=== PATIENT | female | born 1945 | race Caucasian/White ===

== ENCOUNTER 2017-12-23 09:55 | Outpatient (CLI) | payer MEDICARE, OTHER | END 2017-12-23 09:56 | disposition home or self-care (01) | LOC: BICMAMMO 09:55 | PROVIDERS: ATTEND Internal Medicine Rheumatology | DX: M81.0 Age-related osteoporosis without current pathological fracture (principal) | CPT/HCPCS: 77080 ==

== ENCOUNTER 2018-04-30 12:32 | Outpatient (CLI) | payer MEDICARE, OTHER ==
--- NOTE | 2018-04-30 14:53 | RAD ---
CHEST TWO VIEWS: HISTORY: Dyspnea. COMPARISON: None. FINDINGS: The cardiac silhouette is unremarkable. The pulmonary vasculature is within normal limits. The medi astinum is midline with aortic calcification. The pulmonary volumes are somewhat decreased. There i s widespread and diffuse linear interstitial prominence, most pronounced at the periphery. Subtle we dge-shaped interstitial opacities at the periphery of each upper lobe, at the level of the respective mid scapular bodies, has the appearance of fibrotic scarring. No evidence of pneumothorax or pleura l fluid. Calcification of the aorta. Mild physiologic wedging of several lower thoracic vertebral bodies on t he lateral view. IMPRESSION: 1. Interstitial fibrotic changes of the parenchyma, symmetric and diffuse. 2. Atherosclerosis. POS: [facility]
== END 2018-04-30 12:33 | disposition home or self-care (01) ==
LOC: RAD 12:32
PROVIDERS: ATTEND Internal Medicine Pulmonary Disease
DX: R06.00 Dyspnea, unspecified (principal); I70.90 Unspecified atherosclerosis
CPT/HCPCS: 71046

== ENCOUNTER 2018-05-07 12:54 | Outpatient (CLI) | payer MEDICARE, OTHER ==
--- NOTE | 2018-05-07 13:50 | CT ---
HIGH RESOLUTION CHEST CT: HISTORY: COPD. Interstitial lung disease. COMPARISON: None. TECHNIQUE: A high-resolution CT is performed in the supine and prone projections. FINDINGS: Visualized mediastinum is unremarkable. Calcifications of the mitral annulus. Upper solid organs ar e grossly unremarkable. There does appear to be hepatosplenomegaly. There is extensive septal thickening. No evidence of bronchiectasis. Patchy ground-glass opacities. Emphysematous changes of the lung apices are noted. Possible minimal honeycombing in both lower lo bes and left upper lobe. IMPRESSION: Interstitial changes as described above. Patchy areas of honeycombing in the lower lobes and left up per lobe. POS: [facility]
== END 2018-05-07 12:55 | disposition home or self-care (01) ==
LOC: CT 12:54
PROVIDERS: ATTEND Internal Medicine
DX: J44.9 Chronic obstructive pulmonary disease, unspecified (principal); J84.9 Interstitial pulmonary disease, unspecified; J98.4 Other disorders of lung
CPT/HCPCS: 71250; 94060; 94727; 94729

== ENCOUNTER 2018-09-24 09:53 | Outpatient (CLI) | payer MEDICARE, OTHER ==
--- NOTE | 2018-09-24 10:36 | ULT ---
RENAL SONOGRAM: HISTORY: Urinary tract infection. FINDINGS: The right kidney is 11.1 cm and the left kidney 11.9 cm. Right renal pelvis slightly prominent witho ut dilatation of the calyces. Urinary bladder is unremarkable. IMPRESSION: No significant abnormalities are demonstrated. POS: [facility]
== END 2018-09-24 09:54 | disposition home or self-care (01) ==
LOC: BICULT 09:53
PROVIDERS: ATTEND Urology
DX: N39.0 Urinary tract infection, site not specified (principal)
CPT/HCPCS: 76770

== ENCOUNTER 2018-10-09 13:45 | Observation (INO) | payer MEDICARE, OTHER ==
[~2018-10-09 13:45] MED LIST: ISOVUE-370 76%-LOCM 1 ML ONE
--- NOTE | 2018-10-09 14:37 | RAD ---
PORTABLE AP CHEST: Date: 10/09/18 HISTORY: Dyspnea. COMPARISON: 05/10/18. FINDINGS: Cardiac silhouette is magnified by projection. There is linear scarring again present within the lung s bilaterally, greater in the upper lung zones. No area of consolidation or pleural fluid is seen. Va scular calcification is seen in thoracic aorta. There is osteopenia. IMPRESSION: Chronic lung changes without evidence of an acute cardiopulmonary process. POS: [facility]
[2018-10-09 14:58] LABS: #Eosinphils 0.1 thou/uL (0.0-0.7); #Lymphocytes 1.5 thou/uL (1.20-3.40); #Monocytes 0.6 thou/uL (0.11-0.59); #Neutrophils 4.2 thou/uL (1.40-6.50); %Basophils 0.6 % (0.0-1.0); %Eosinophils 2.2 % (0.0-10.0); %Lymphocytes 23.2 % (21.0-51.0); %Monocytes 9.2 % (0.0-10.0); %Neutrophils 64.7 % (42.0-75.0); Mean Corpuscular HGB CONC 31.5 g/dL (32.0-36.0); Mean Corpuscular Hemoglobin 26.5 pg (27.0-31.0); Mean Corpuscular Volume 84.3 fL (78.0-98.0); Mean Platelet Volume 8.9 fL (7.4-10.4); Platelet Count 144 thou/uL (130-400); RBC Distribution Width 16.9 % (11.5-14.5); Red Blood Cell (RBC) Count 4.52 mill/uL (4.20-5.40); White Blood Cell (WBC) Count 6.4 thou/uL (4.8-10.8)
[2018-10-09 15:21] LABS: ALT (SGPT) 10 U/L (8-55); AST (SGOT) 22 U/L (5-34); Albumin 3.9 g/dL (3.4-4.8); Alkaline Phosphatase 100 U/L (40-150); Anion Gap 14 mmol/L (10-20); BUN (Urea Nitrogen) 12 mg/dL (9.8-20.1); Bilirubin, Total 0.4 mg/dL (0.2-1.2); CK (CPK) 49 U/L (29-168); Calc. Creatinine Clearance 0 mL/min (70-130); Calcium 9.3 mg/dL (7.8-10.44); Carbon Dioxide 23 mmol/L (23-31); Chloride 106 mmol/L (98-107); Estimated GFR-MDRD 71; Globulin 3.8 g/dL (2.4-3.5); Glucose 87 mg/dL (83-110); Lipase 17 U/L (8-78); Potassium 3.5 mmol/L (3.5-5.1); Protein, Total 7.7 g/dL (6.0-8.3); Sodium 139 mmol/L (136-145)
[2018-10-09 15:44] LABS: CKMB 1.5 ng/mL (0-6.6)
--- NOTE | 2018-10-09 17:10 | HP ---
PRIMARY CARE PHYSICIAN: Roosevelt Warren MD PRIMARY REPERTOIRE MANAGER: Christiano Stearns MD REASON FOR ADMISSION: Chest pain and elevated troponin. HISTORY OF PRESENT ILLNESS: A 73-year-old female, who has underlying history of diastolic heart failure, diabetes, hypertension, gastroesophageal reflux disease, COPD, and chronic respiratory failure, on home oxygen therapy, who presented to emergency room with complaint of chest tightness. The patient reports that this morning she was not feeling good when she woke up. She did not take her regular morning atenolol. Subsequently, she started feeling racing of her heart and she was experiencing chest tightness, which was radiating to left upper extremity and back. She denies any associated nausea, vomiting, diaphoresis, dizziness, or syncope. She was feeling shortness of breath, which is chronic for her, but little bit worse when she had that episode. The patient called paramedics and paramedics gave her aspirin and nitroglycerin. After that, the pain subsided and never returned. She was slightly tachycardic when she arrived to emergency room. The patient reports that lately she was feeling upset in her stomach. She was having intermittent loose bowel movement. Her grandson was also experiencing viral gastroenteritis. The patient by herself did not have any melena or hematochezia. She denies any fever or chills. She denies any nausea or vomiting. When paramedics took her at that time, she was tachycardic, but she was hemodynamically stable. Her EKG was not showing any new ischemic changes. The patient reports that, in August, the patient was evaluated by Dr. Stearns and she had echocardiography done as well as stress test was done in his office. The patient has underlying claustrophobia and she requires lorazepam with any kind of imaging . This patient is originally from [place], [place], where she had complete workup done, and recently after her , moved to [facility] with her daughter. REVIEW OF SYSTEMS: CONSTITUTIONAL: Negative for weight loss or gain, ability to conduct usual activities. SKIN: Negative for rash, itching. EYES: Negative for double vision, pain. ENT/MOUTH: Negative for nose bleeding, neck stiffness, pain, tenderness. CARDIOVASCULAR: Negative for palpitations, dyspnea on exertion, orthopnea. RESPIRATORY: Negative for shortness of breath, wheezing, cough, hemoptysis, fever or night sweats. GASTROINTESTINAL: Negative for poor appetite, abdominal pain, heartburn, nausea, vomiting, constipation, or diarrhea. GENITOURINARY: Negative for urgency, frequency, dysuria, nocturia. MUSCULOSKELETAL: Negative for pain, swelling. NEUROLOGIC/PSYCHIATRIC: Negative for anxiety, depression. ALLERGY/IMMUNOLOGIC: Negative for skin rash, bleeding tendency. Please see my HPI for pertinent positive and negative. All other review of systems reviewed and negative except as mentioned in the HPI. PAST MEDICAL HISTORY: Atrial fibrillation; osteoporosis; peripheral neuropathy; COPD; chronic respiratory failure, on home oxygen; diabetes type 2; hypertension; dyslipidemia; congestive heart failure. PAST PSYCHIATRIC HISTORY: Anxiety and depression. PAST SURGICAL HISTORY: Cataract surgery, bladder cancer surgery, cardiac catheterization, appendicectomy, cholecystectomy, and tubal ligation. SOCIAL HISTORY: The patient has history of smoking. She quit smoking 30 years ago. She denies any alcohol or other illicit drug abuse. She is and living with her daughter. FAMILY HISTORY: No strong family history of premature coronary artery disease, stroke, or cancer. ALLERGIES: NO KNOWN DRUG ALLERGIES. CURRENT HOME MEDICATIONS: 1. Atenolol 25 mg twice daily. 2. Lipitor 10 mg p.o. daily. 3. Celecoxib 200 mg twice daily. 4. Librax 5/2.5 twice daily. 5. Lasix 20 mg daily. 6. Gabapentin 600 mg twice daily. 7. Glimepiride 2 mg daily. 8. Losartan 25 mg p.o. daily. 9. Omeprazole 20 mg p.o. daily. 10. Oxybutynin 5 mg p.o. daily. 11. Zoloft 100 mg p.o. daily. 12. Boniva inhalation daily. EMERGENCY ROOM COURSE: The patient is given aspirin and nitroglycerin. PHYSICAL EXAMINATION: VITAL SIGNS: Currently, blood pressure 134/72, pulse , respiratory rate 20, temperature 98.6, saturation 95% on 2 L oxygen, and weight 97 kg. GENERAL: The patient is currently alert, awake, and in no obvious acute distress. HEENT: Head; normocephalic and atraumatic. Eyes; pupils round and reactive to light. Extraocular muscle intact. ENT; oropharynx within normal limits. Moist mucous membrane. No oral lesion. No pharyngeal erythema. No exudate. NECK: Supple. No JVD. No thyromegaly. No carotid bruit. No jugular venous distention. LUNGS: Clear to auscultation without any rhonchi or rales. CARDIAC: S1, S2, regular, tachycardia. No murmur. No gallop. No rub. ABDOMEN: Soft and benign. EXTREMITIES: No edema. No calf tenderness. NEUROLOGIC: Nonfocal examination. SIGNIFICANT LABORATORY DATA: CBC; WBC 6.4, hemoglobin 12.0, and platelet 144. BMP; sodium 139, potassium 3.5, chloride 106, carbon dioxide 23, BUN 12, creatinine 0.79, glucose 87, and calcium 9.3. LFT; AST 22, ALT 10, alkaline phosphatase 100, albumin 3.9, and lipase 17. CK 49, CK-MB 1.5, and troponin 0.079. BNP 146.4. EKG showing sinus tachycardia. ASSESSMENT AND PLAN: 1. Chest pain. Description is atypical. Troponin is slightly elevated. The patient does not have any ST elevation at this point. Suspecting related with tachycardic episode. We will check D-dimer to rule out any thromboembolic disorder. If D-dimer is abnormal, then we will consider doing CT angiography. Meanwhile, we will continue with the aspirin 325 mg p.o. daily and nitroglycerin patch q.8 hourly. Cardiology will be consulted. Echocardiography and stress test were done at Cardiology office. We will obtain records from them. We will check lipid profile for risk stratification. Further decision will defer to Cardiology. 2. Elevated troponin. Rule out acute coronary syndrome. We will do serial cardiac enzyme x3 as mentioned in problem #1. 3. Elevated BNP. The patient has history of congestive heart failure, suspecting diastolic heart failure. We will obtain echocardiography report from Cardiology office. 4. COPD with chronic respiratory failure, on home oxygen therapy. We will continue DuoNeb therapy q.6 hourly p.r.n. 5. Paroxysmal atrial fibrillation. We will continue atenolol 25 mg twice daily. 6. Dyslipidemia. Check lipid profile tomorrow and continue Lipitor 10 mg p.o. daily. 7. Peripheral neuropathy. Continue gabapentin 600 mg twice daily. 8. Diabetes, type 2. Continue diabetic diet and insulin as per sliding scale protocol. We will continue glimepiride 2 mg daily. 9. Hypertension. We will continue losartan 25 mg p.o. daily. 10. Gastroesophageal reflux disease. We will continue Protonix 40 mg p.o. daily. 11. Urge incontinence. Continue oxybutynin 5 mg p.o. daily. 12. Anxiety and depression. Continue Zoloft 100 mg p.o. daily. 13. Deep venous thrombosis prophylaxis, Lovenox 40 mg subcu daily. 14. Gastrointestinal prophylaxis, Protonix 40 mg p.o. daily. CODE STATUS: The patient is full code. The patient's daughter is surrogate decision maker. DISPOSITION PLAN: Based on clinical course and Cardiology recommendation. Plan of care discussed with the patient and family member at bedside in the emergency room in detail. Job ID: [id number]
[2018-10-09] MEDS ORDERED: Calcium Carbonate 500 MG ChewTAB PO PRN (18:11)
[2018-10-09] MEDS ORDERED: Zolpidem Tartrate 5 MG TAB PO PRN (18:11)
[2018-10-09] MEDS ORDERED: Senokot S 8.6-50 MG TAB PO PRN (18:11)
[2018-10-09] MEDS ORDERED: Artificial Tears 18 DROP/0.9 ML EA EYE PRN (18:11)
[2018-10-09] MEDS ORDERED: Nitroglycerin 0.4 MG TAB (25 Tab Bottle) PO PRN (18:11)
[2018-10-09] MEDS ORDERED: Ondansetron ODT 4 MG TAB PO PRN (18:11)
[2018-10-09] MEDS ORDERED: Loperamide HCl 2 MG CAP PO PRN (18:11)
[2018-10-09] MEDS ORDERED: Dextrose 50% Abboject 50 ML SYRINGE SLOW IVP PRN (18:11)
[2018-10-09] MEDS ORDERED: HumaLOG 300 UNITS/3 ML VIAL SC PRN ×2 (18:11)
[2018-10-09] MEDS ORDERED: Bisacodyl 10 MG SUPP PR PRN (18:11)
[2018-10-09] MEDS ORDERED: Sodium Chloride 0.65% Nasal 44 ML BOT EA NARE PRN (18:11)
[2018-10-09] MEDS ORDERED: Bisacodyl 5 MG TAB PO PRN (18:11)
[2018-10-09] MEDS ORDERED: hydrALAZINE 20 MG/ML VIAL SLOW IVP PRN (18:11)
[2018-10-09] MEDS ORDERED: HYDROcodone/Acetaminophen 5/325 mg Tablet PO PRN (18:11)
[2018-10-09] MEDS ORDERED: Dextrose 5% in Water 1,000 ML IV PRN (18:11)
[2018-10-09] MEDS ORDERED: Cepastat Lozenges 1 LOZ PO PRN (18:11)
[2018-10-09] MEDS ORDERED: Nitroglycerin 0.4 MG TAB (25 Tab Bottle) SL PRN (18:11)
[2018-10-09] MEDS ORDERED: Ondansetron PF 4 MG/2 ML Vial IVP PRN (18:11)
[2018-10-09] MEDS ORDERED: Eucerin (Mineral Oil/Petrolatum,White) 30 gm Jar TOP PRN (18:11)
[2018-10-09] MEDS ORDERED: Loratadine 10 MG TAB PO PRN (18:11)
[2018-10-09] MEDS ORDERED: Diabetic Tussin 200 MG/10 ML UDCUP PO PRN (18:11)
[2018-10-09 18:16] VITALS: BMI 33.2
[2018-10-09 19:01] LABS: Troponin I 0.085 ng/mL (< 0.028)
[2018-10-09] MEDS ORDERED: Aspirin 325 MG TAB PO SCH (19:15)
[2018-10-09] MEDS ORDERED: chlordiazePOXIDE/Clidinium Bromide Capsule PO SCH (19:15)
[2018-10-09] MEDS: Atenolol 25 MG TAB PO SCH (19:40)
[2018-10-09] MEDS ORDERED: Sodium Chloride 0.9% 1,000 ML IV SCH (20:00)
[2018-10-09] MEDS ORDERED: Diazepam 5 MG TAB PO SCH (20:00)
[2018-10-09] MEDS ORDERED: Nitroglycerin 2% Ointment 1 INCH/1 GM Packet TOP SCH (20:00)
[2018-10-09] MEDS: Gabapentin 300 MG CAP PO SCH (20:20)
[2018-10-09] MEDS: Acetaminophen 325 MG TAB PO PRN (20:32)
[2018-10-09] MEDS ORDERED: Atorvastatin Calcium 10 MG TAB PO SCH (21:00)
[2018-10-09 21:47] LABS: Troponin I 0.085 ng/mL (< 0.028)
--- NOTE | 2018-10-09 21:49 | CT ---
CT PULMONARY ANGIOGRAM WITH IV CONTRAST AND 3D POSTPROCESSIN10/09/18 HISTORY: Shortness of breath. FINDINGS: There is good contrast opacification of the pulmonary artery vasculature without filling defects to s uggest pulmonary embolism. Esophagus is well opacified without aneurysm or dissection. Vascular calci fications are present. No pleural or pericardial effusions are seen. There are chronic changes in the lung reddy which were also seen on the chest CT of 05/07/18. Degenerative changes are present in the spine and upper abdominal tomograms demonstrate splenomegaly (16 cm). IMPRESSION: No CT evidence of pulmonary embolism. POS: [facility]
[2018-10-10] MEDS: Acetaminophen 325 MG TAB PO PRN ×2 (04:55→13:26)
[2018-10-10] MEDS: Nitroglycerin 2% Ointment 1 INCH/1 GM Packet TOP SCH ×2 (04:58→14:40)
[2018-10-10 05:54] LABS: Cardiac Risk 3.4 (Less than 4.5)
[2018-10-10] MEDS ORDERED: Glimepiride 2 MG TAB PO SCH (08:00)
[2018-10-10] MEDS: Gabapentin 300 MG CAP PO SCH (08:23)
[2018-10-10] MEDS: Atenolol 25 MG TAB PO SCH (08:23)
[2018-10-10] MEDS ORDERED: Aspirin 325 mg Enteric Coated Tablet PO SCH (09:00)
[2018-10-10] MEDS ORDERED: Enoxaparin Sodium 40 MG/0.4 ML SYRINGE SC SCH (09:00)
[2018-10-10] MEDS ORDERED: Furosemide 20 MG TAB PO SCH (09:00)
[2018-10-10] MEDS ORDERED: Oxybutynin 5 MG TAB PO SCH (09:00)
[2018-10-10] MEDS: Losartan 25 MG TAB PO SCH ×2 (12:00→12:29)
[2018-10-10] MEDS: chlordiazePOXIDE/Clidinium Bromide Capsule PO SCH ×2 (12:29)
--- NOTE | 2018-10-10 13:08 | PDOC.PN ---
- Subjective Encounter Start Date: 10/10/18 Encounter Start Time: 07:30 -: old records requested/rev Patient seen and examined. No new complaints. No overnight events - Objective Resuscitation Status - Order Detail: 10/09/18 16:13 Resuscitation Status Routine Resuscitation Status: FULL: Full Resuscitation MAR Reviewed: Yes Vital Signs & Weight: Vital Signs (12 hours) Temp Pulse Resp BP BP Pulse Ox 10/10/18 08:23 82 105/56 L 10/10/18 08:00 98.5 F 79 18 105/56 L 92 L 10/10/18 03:20 97.8 F 78 17 120/58 L 98 Weight Weight 215 lb 11.2 oz I&O: 10/09/18 10/10/18 10/11/18 06:59 06:59 06:59 Intake Total 986 Output Total 500 Balance 486 Result Diagrams: 10/09/18 14:47 10/09/18 14:47 Additional Labs: Accuchecks 10/10/18 10/10/18 10/09/18 10:55 06:09 20:46 POC Glucose 88 88 129 H EKG Reviewed by me: Yes Phys Exam - Physical Examination Constitutional: NAD HEENT: PERRLA, moist MMs, sclera anicteric Neck: no JVD, supple Respiratory: no wheezing, no rales, no rhonchi Cardiovascular: RRR, no significant murmur, no rub Gastrointestinal: soft, non-tender, no distention, positive bowel sounds Musculoskeletal: no edema, pulses present Neurological: non-focal, normal sensation, moves all 4 limbs Lymphatic: no nodes Psychiatric: normal affect, A&O x 3 Skin: no rash, normal turgor Dx/Plan (1) Chest pain Code(s): R07.9 - CHEST PAIN, UNSPECIFIED Status: Acute (2) Elevated troponin Code(s): R74.8 - ABNORMAL LEVELS OF OTHER SERUM ENZYMES Status: Acute (3) Anxiety and depression Code(s): F41.9 - ANXIETY DISORDER, UNSPECIFIED; F32.9 - MAJOR DEPRESSIVE DISORDER, SINGLE EPISODE, UNSPECIFIED Status: Chronic (4) COPD (chronic obstructive pulmonary disease) Status: Chronic (5) Chronic respiratory failure with hypoxia, on home O2 therapy Code(s): J96.11 - CHRONIC RESPIRATORY FAILURE WITH HYPOXIA; Z99.81 - DEPENDENCE ON SUPPLEMENTAL OXYGEN Status: Chronic (6) Diabetes type 2, controlled Code(s): E11.9 - TYPE 2 DIABETES MELLITUS WITHOUT COMPLICATIONS Status: Chronic (7) Dyslipidemia Code(s): E78.5 - HYPERLIPIDEMIA, UNSPECIFIED Status: Chronic (8) GERD (gastroesophageal reflux disease) Code(s): K21.9 - GASTRO-ESOPHAGEAL REFLUX DISEASE WITHOUT ESOPHAGITIS Status: Chronic (9) Hypertension Code(s): I10 - ESSENTIAL (PRIMARY) HYPERTENSION Status: Chronic (10) Obesity (BMI 30.0-34.9) Code(s): E66.9 - OBESITY, UNSPECIFIED Status: Chronic (11) Osteoporosis Code(s): M81.0 - AGE-RELATED OSTEOPOROSIS W/O CURRENT PATHOLOGICAL FRACTURE Status: Chronic - Plan cont current plan of care * medication reviewed as below * symptomatic treatment * further decision as per cardiology * will consider discharge later. Review of Systems - Review of Systems ENT: negative: Ear Pain, Ear Discharge, Nose Pain, Nose Discharge, Nose Congestion, Mouth Pain, Mouth Swelling, Throat Pain, Throat Swelling, Other Respiratory: negative: Cough, Dry, Shortness of Breath, Hemoptysis, SOB with Excertion, Pleuritic Pain, Sputum, Wheezing Cardiovascular: negative: chest pain, palpitations, orthopnea, paroxysmal nocturnal dyspnea, edema, light headedness, other Gastrointestinal: negative: Nausea, Vomiting, Abdominal Pain, Diarrhea, Constipation, Melena, Hematochezia, Other Genitourinary: negative: Dysuria, Frequency, Incontinence, Hematuria, Retention , Other Musculoskeletal: negative: Neck Pain, Shoulder Pain, Arm Pain, Back Pain, Hand Pain, Leg Pain, Foot Pain, Other - Medications/Allergies Allergies/Adverse Reactions: Allergies Allergy/AdvReac Type Severity Reaction Status Date / Time codeine Allergy "heart Verified 10/09/18 19:44 beat out of my body" Medications: Current Medications Acetaminophen (Tylenol) 650 mg PO Q4H PRN PRN Reason: Headache/Fever/Mild Pain (1-3) Last Admin: 10/10/18 04:55 Dose: 650 mg Hydrocodone Bitart/Acetaminophen ([place] 5/325) 1 tab PO Q4H PRN PRN Reason: Moderate Pain (4-6) Albuterol/Ipratropium (Duoneb) 3 ml NEB Q6H PRN PRN Reason: SOB &/or Wheezing Artificial Tears (Tears Naturale) 2 drop EA EYE PRN PRN PRN Reason: Dry Eyes Aspirin (Ecotrin) 325 mg PO DAILY [facility] Last Admin: 10/10/18 08:23 Dose: 325 mg Atenolol (Tenormin) 25 mg PO Q12HR [facility] Last Admin: 10/10/18 08:23 Dose: 25 mg Atorvastatin Calcium (Lipitor) 10 mg PO HS [facility] Last Admin: 10/09/18 20:20 Dose: 10 mg Bisacodyl (Dulcolax) [address] DAILYPRN PRN PRN Reason: Constipation Bisacodyl (Dulcolax) 10 mg PO DAILYPRN PRN PRN Reason: Constipation Calcium Carbonate (Tums) 1,000 mg PO Q4H PRN PRN Reason: Heartburn or Indigestion Chlordiazepoxide/Clidinium (Librax) 1 cap PO ACHS [facility] Last Admin: 10/10/18 12:29 Dose: 1 cap Dextrose/Water (Dextrose 50%) 25 gm SLOW IVP PRN PRN PRN Reason: Hypoglycemia Enoxaparin Sodium (Lovenox) 40 mg SC 0900 [facility] Last Admin: 10/10/18 08:24 Dose: 40 mg Furosemide (Lasix) 20 mg PO DAILY [facility] Last Admin: 10/10/18 08:23 Dose: 20 mg Gabapentin (Neurontin) 600 mg PO BID [facility] Last Admin: 10/10/18 08:23 Dose: 600 mg Glimepiride (Amaryl) 2 mg PO QAM-WM [facility] Last Admin: 10/10/18 08:23 Dose: 2 mg Glucagon (Glucagon) 1 mg IM PRN PRN PRN Reason: Hypoglycemia Guaifenesin (Robitussin Sf) 200 mg PO Q4H PRN PRN Reason: Cough Hydralazine HCl (Apresoline) 10 mg SLOW IVP Q4H PRN PRN Reason: SBP > 180 and HR < 70 Dextrose/Water (D5w) 1,000 mls @ 0 mls/hr IV .Q0M PRN PRN Reason: Hypoglycemia Insulin Human Lispro (Humalog) 0 units SC .MODERATE SLIDING SC PRN PRN Reason: Moderate Correctional Scale Insulin Human Lispro (Humalog) 0 units SC .BEDTIME SLIDING SC PRN PRN Reason: Bedtime Correctional Scale Loperamide HCl (Imodium) 2 mg PO PRN PRN PRN Reason: Diarrhea/Loose Stools Loratadine (Claritin) 10 mg PO DAILYPRN PRN PRN Reason: Sinus Symptoms Losartan Potassium (Cozaar) 25 mg PO DAILY [facility] Last Admin: 10/10/18 12:29 Dose: 25 mg Mineral Oil/White Petrolatum (Eucerin Cream) 0 gm TOP BIDPRN PRN PRN Reason: Dry Skin Nitroglycerin (Nitrostat) 0.4 mg SL Q5MIN PRN PRN Reason: Chest Pain Nitroglycerin (Nitro-Bid 2% Ointment) 0.5 inch TOP Q8HR [facility] Last Admin: 10/10/18 04:58 Dose: 0.5 inch Ondansetron HCl (Zofran Odt) 4 mg PO Q6H PRN PRN Reason: Nausea/Vomiting Ondansetron HCl (Zofran) 4 mg IVP Q6H PRN PRN Reason: Nausea/Vomiting Oxybutynin Chloride (Ditropan) 5 mg PO DAILY [facility] Last Admin: 10/10/18 08:23 Dose: 5 mg Pantoprazole Sodium (Protonix) 40 mg PO DAILY [facility] Last Admin: 10/10/18 08:23 Dose: 40 mg Senna/Docusate Sodium (Senokot S) 2 tab PO BID PRN PRN Reason: Constipation Sertraline HCl (Zoloft) 100 mg PO DAILY [facility] Last Admin: 10/10/18 08:23 Dose: 100 mg Sodium Chloride ([place] Nasal [place] 0.65%) 0 ml EA NARE QIDPRN PRN PRN Reason: Nasal Congestion Throat Lozenges (Cepastat Lozenges) 1 sofy PO Q2H PRN PRN Reason: Sore Throat Zolpidem Tartrate (Ambien) 5 mg PO HSPRN PRN PRN Reason: Insomnia
[2018-10-10 13:27] VITALS: BP 137/63; TEMP 97.8
--- NOTE | 2018-10-10 13:47 | CON ---
DATE OF CONSULTATION: PRIMARY CARE DOCTOR: Dr. Roosevelt Warren. PRIMARY HYDROELECTRIC MECHANIC: Dr. Stearns. REASON FOR CARDIOLOGY CONSULTATION: Chest pain. HISTORY OF PRESENT ILLNESS: Ms. Romero is a 73-year-old female with significant history of idiopathic pulmonary fibrosis, which was managed by Dr. Rivero, bladder cancer, diabetes type 2, hypertension, and left CEA in 1999. About two weeks, she had abdominal pain and diarrhea x2. Yesterday, when she woke up, she noticed that she has a pain to the right, next to the left mediastinal border, just one spot, the discomfort elevated with palpitation and with movement. Due to these symptoms, the patient decided to present to the emergency department for further evaluation and treatment. During the episode, she did not have any shortness of breath, dizziness, lightheadedness or any numbness to the left upper arm or to the neck or any other cardiac complaints. She underwent stress test in April 2018 with no ischemia and EF of 65%. Also, the patient had echocardiogram done in August 2017 with EF of 55% to 60%, grade 1 diastolic dysfunction, mild tricuspid regurgitation, mild mitral valvular regurgitation, sclerotic aortic valve with reducing excursion and mild aortic valve stenosis. The patient never had a cardiac catheterization before and she had right endarterectomy in 1999 and she had a carotid Doppler study in February 2018 that shows less than 50% stenosis of the right and left carotid arteries, mild atherosclerotic plaque on right and left common carotid arteries. PAST MEDICAL HISTORY: 1. Hypertension. 2. Diabetes, type 2. 3. Bladder cancer. 4. Arthritis. 5. GERD. 6. Short-term memory loss. PAST SURGICAL HISTORY: 1. Appendectomy. 2. Left CEA in 1999. 3. Bilateral cataract surgery. 4. Cholecystectomy. 5. Bladder surgery in 2017. FAMILY HISTORY: The patient's father has a history of diabetes. The patient's mother due to the complication of CVA and mitral valve myocardial infarction at the age of 74. The patient had two brothers, whom due to cancer and cirrhosis. The patient's sister alive and well. SOCIAL HISTORY: The patient is a . She lives near her daughters. She has short-term memory loss since she has a sepsis due to the bladder cancer and its complication. The patient is an ex-smoker, quit 30 years ago. She denies EtOH or illicit drug abuse. She drinks 2 cups of coffee a day. ALLERGIES: SHE IS ALLERGIC TO CODEINE. HOME MEDICATIONS: 1. Zoloft 100 mg once a day. 2. Oxybutynin 5 mg once a day. 3. Omeprazole 20 mg once a day. 4. Losartan 25 mg once a day. 5. Glimepiride 2 mg once a day. 6. Gabapentin 600 mg twice a day. 7. Librax 1 capsule twice a day. 8. Celebrex 200 mg twice a day. 9. Atorvastatin 10 mg once a day. 10. Atenolol 25 mg twice a day. 11. Boniva 150 mg once a day. 12. Lasix 20 mg once a day. REVIEW OF SYSTEMS: Twelve-point review of systems unless otherwise mentioned in the HPI. The patient uses a walker. She has upper and bottom dentures. PHYSICAL EXAMINATION: VITAL SIGNS: Blood pressure 105/56, temperature 98.5, pulse 79, sinus rhythm, respiratory rate 18, O2 saturation 92% on room air. GENERAL: The patient is alert and oriented x4, in no acute distress. HEENT: Head is normocephalic, atraumatic. Eyes; extraocular muscle movements are intact. She uses glasses. ENT and mouth; oral and nasal mucosa moist without lesion. NECK: Supple. Normal range of motion. They have a bruit to the right carotid. Again, the patient's carotid Doppler in August 2017 showed less than 50% stenosis. LUNGS: Clear to auscultate bilaterally. No rales, rhonchi, or wheezing noted. CARDIOVASCULAR: Regular rate and rhythm. Normal S1, S2. There are no S3, S4. No significant murmur, heaves, or thrill noted. 2+ pulses in the bilateral upper lower extremity. No edema. ABDOMEN: Soft, nontender. No masses palpated. Bowel sounds are present. SKIN: Warm and dry. No lesion, rash, or ischemia noted. MUSCULOSKELETAL: The patient able to move all extremities. She uses a walker. She denies claudication. PSYCHIATRIC: The patient's mood is appropriate. NEUROLOGIC: The patient is alert and oriented x4, nonfocal. LABORATORY DATA: WBC 6.4, hemoglobin 12.0, hematocrit 38.1, platelet 144. D-dimer 1.25. Sodium 139, potassium 3.5, BUN 12, creatinine 0.79. AST 22, ALT 10, CK-MB 1.5, troponin 0.079, 0.085, 0.085. BNP is 146.4. Total cholesterol 159, triglycerides 124, HDL 47, LDL 87. The patient's chest x-ray shows chronic lung changes without evidence of acute cardiopulmonary process and the patient has a CT scan of the chest due to the elevated D-dimer, which showed no CT evidence of pulmonary embolism. The 12-lead EKG at the emergency department shows sinus tach with heart rate [address]-segment change or T-wave inversion. ASSESSMENT AND PLAN: 1. Chest pain. The patient is complaining of the pain with palpitation to the side with movement. The etiology is possible secondary to muscle aching. The patient's EKG did not show any ST-segment change or T-wave inversion. The patient's cardiac enzyme is negative. The patient's vital signs are stable at this moment. The patient's stress test in April 2018 shows normal, no ischemia, and the patient's echocardiogram in February 2018 shows within normal range. We would like to continue to monitor the patient's symptoms and the patient can follow up with Dr. Stearns within two weeks as outpatient. 2. Hypertension. The patient's blood pressure is stable at this moment. 3. Hyperlipidemia. The patient is on Lipitor 10 mg once a day. 4. Diabetes, type 2. She is on a.c. and h.s. blood glucose check with sliding scale insulin. 5. Idiopathic pulmonary fibrosis, which is managed by Dr. Rivero. She uses home O2 during the night and as needed during the daytime. At this moment, the patient is stable. Thank you very much for allowing the Cardiology Service to participate in the care of this patient. The patient's condition is stable and the patient's chest pain is typical and possible from musculoskeletal etiology. The patient is stable to discharge and follow up with Dr. Stearns within two weeks. Job ID: [id number]
--- NOTE | 2018-10-10 14:00 | DIS ---
DATE OF ADMISSION: 10/09/2018 DATE OF DISCHARGE: 10/10/2018 PRIMARY CARE PHYSICIAN: Dr. Roosevelt Warren. DISCHARGE DISPOSITION: Home. PRIMARY DISCHARGE DIAGNOSES: Chest pain, ruled out acute coronary syndrome, elevated troponin due to demand ischemia. SECONDARY DISCHARGE DIAGNOSES: Obesity with BMI 32, osteoporosis, hypertension, gastroesophageal reflux disease, dyslipidemia, diabetes type 2, chronic obstructive pulmonary disease, chronic respiratory failure with hypoxia, on home oxygen therapy, anxiety and depression, chronic diastolic heart failure. PRIMARY PROCEDURE/OPERATION: None. RADIOLOGICAL INVESTIGATION: Chest x-ray showed chronic changes. CT angiography negative for PE. SIGNIFICANT LABORATORY DATA: WBC 6.4, hemoglobin 12.0, and platelets 144. D-dimer . Sodium 139, creatinine 0.79. Electrolytes normal. LFT normal. BNP 146. Troponin 0.079, 0.085. LDL 87. Lipase normal. DISCHARGE MEDICATIONS: The patient will continue all her previous medications; 1. Tenormin 25 mg p.o. b.i.d. 2. Lipitor 10 mg daily. 3. Celebrex 200 mg p.o. b.i.d. p.r.n. 4. Librax one capsule b.i.d. 5. Lasix 20 mg daily. 6. Gabapentin 600 mg p.o. b.i.d. 7. Amaryl 2 mg p.o. daily. 8. Boniva 150 mg p.o. as directed. 9. Losartan 25 mg p.o. daily. 10. Omeprazole 20 mg p.o. daily. 11. Oxybutynin 5 mg p.o. daily. 12. Zoloft 100 mg p.o. daily. CONTRAINDICATION: None. CODE STATUS: Full code. INPATIENT HOSPITAL INSURANCE REPRESENTATIVE: Dr. Bañuelos. TEST RESULTS PENDING ON DISCHARGE: None. ALLERGIES: CODEINE. DISCHARGE PLAN: Posthospital, the patient will follow up with Dr. Stearns and primary care physician. HOSPITAL COURSE: A 73-year-old female, who was not feeling good when she woke up yesterday and subsequently, she was having a fast heart rate, and she was experiencing chest tightness with mild shortness of breath. She was evaluated in the emergency room. She was found with elevated troponin, which was indeterminate range. Rest of blood test was normal. The patient also had an electrocardiogram, which was unchanged from previous. This patient was observed overnight in the hospital. We did a D-dimer, it was slightly elevated and that is why we did CT angiography, which was negative for PE. The patient already had recently echocardiography and stress test done in cardiology office, and as per patient, report was normal. We did not pursue any more testing during this admission. We consulted Cardiology. The patient is seen and examined at bedside today. Currently, the patient is asymptomatic. The patient expressed her wish to go home. She will continue all her previous medications. The patient is seen and examined at bedside today. Please see my progress note from today for further detail. Job ID: [id number]
--- NOTE | 2018-10-12 09:58 | CON ---
DATE OF CONSULTATION: ADDENDUM: PRIMARY CARE PHYSICIAN: Roosevelt Warren MD Please refer to the notes already dictated by nurse practitioner. HISTORY OF PRESENT ILLNESS: Ms. Romero is a very pleasant 73-year-old female with a history of pulmonary fibrosis, who lives alone. She has been having some diarrhea for the last couple weeks. She thought she had Salmonella, but this is not that of a true diagnosis that she is aware of. There has been no diagnosis, but this is just for her what she did think she had. She has had some chest strain in the past, which she says this has been so similar to what pain she has now. This has been an ongoing process. She did recently have a stress test in the office, which was unremarkable. She became frightened at home, for which she developed some right-sided chest discomfort and 911 was called. She was evaluated and they have advised to go to the hospital and since being here, she has had no further chest discomfort. Her EKG does not show any acute changes to indicate ischemia. She did have some short runs of SVT. With supraventricular tachycardia, she did have some nonspecific ST-segment changes due to very short runs and they resolved, but she does not have chest pain associated with them, but does feel the palpitations. Her stress test was in April of 2018. She had no evidence of ischemia on a PET perfusion study with ejection fraction of 65%. Her cardiac enzymes are indeterminate, but this may be due to demand ischemia, all associated with the supraventricular tachycardia or pulmonary fibrosis with some probably hypoxemia. Her troponin was 0.079, increased up to 0.089 and has remained stable. She has had no other complaints. She has been walking. She does use home O2, but here she has been doing relatively well even though she is on room air. PAST MEDICAL HISTORY: Please refer the notes dictated by the nurse practitioner. SOCIAL HISTORY: Please refer the notes dictated by the nurse practitioner. FAMILY HISTORY: Please refer the notes dictated by the nurse practitioner. REVIEW OF SYSTEMS: Please refer the notes dictated by the nurse practitioner. MEDICATIONS: Please refer the notes dictated by the nurse practitioner. PHYSICAL EXAMINATION: GENERAL: Reveals an elderly female, who is very pleasant, well-developed. VITAL SIGNS: Blood pressure 137/63, heart rate is 80 and regular, and respiratory rate 16. She is afebrile. O2 saturation is 92%. HEENT: Shows head to be normocephalic and atraumatic. NECK: She does have a very soft left carotid bruit, which may be some radiation from the aortic area. CHEST: Her chest actually has a bilateral fine dry rales compatible with her pulmonary fibrosis. CARDIOVASCULAR: Revealed a regular rate and rhythm. She does have a systolic murmur over the aortic area, which is compatible with a history of some aortic stenosis in the past. Otherwise, there are no heaves or thrills noted. ABDOMEN: Shows obesity. Positive bowel sounds are present. No organomegaly or masses are noted. Femoral pulses are present. I did not palpate pedal pulses. She has no lower extremity edema. NEUROLOGIC: She appears to be fully intact. LABORATORY DATA: Other than the slightly abnormal cardiac enzymes, it is relatively unremarkable. Hemoglobin was 12.0, WBC of 6.4 with a blood sugar of 87 and potassium of 3.5. IMPRESSION AND PLAN: 1. Elderly female with chest pain, which is somewhat atypical, most likely musculoskeletal. Please note, this was reproducible by palpation of the chest. Also, she does have a history of pulmonary fibrosis, which may be causing some increasing shortness of breath and chest discomfort. I do not believe that this is any significant underlying coronary artery disease or indication that she has had a myocardial infarction at this time. She has been stable and from my perspective, could be discharged home, who can be followed up as an outpatient. 2. Pulmonary fibrosis. She is followed by the merchandise for resale purchasing agent and we will continue to follow up with them. 3. History of diabetes. This appears to be under good control at this time. 4. History of venous insufficiency. This also appears to be relatively stable. She will need to follow up in the office. Otherwise, from a cardiac standpoint, she is stable overall and is ready for discharge today. Please note, she does have diastolic dysfunction, but this has remained stable. I did review her medications and would agree with the present medications. Job ID: [id number]
== END 2018-10-10 16:15 | disposition home or self-care (01) ==
LOC: ERS 13:45 → 2SW 15:45
PROVIDERS: ADMIT Internal Medicine; ATTEND Internal Medicine
DX: R07.89 Other chest pain (principal); I24.8 Other forms of acute ischemic heart disease; R74.8 Abnormal levels of other serum enzymes; M81.0 Age-related osteoporosis without current pathological fracture; K21.9 Gastro-esophageal reflux disease without esophagitis; E78.5 Hyperlipidemia, unspecified; J44.9 Chronic obstructive pulmonary disease, unspecified; F41.9 Anxiety disorder, unspecified; F32.9 Major depressive disorder, single episode, unspecified; I11.0 Hypertensive heart disease with heart failure; I50.32 Chronic diastolic (congestive) heart failure; J96.11 Chronic respiratory failure with hypoxia; E11.42 Type 2 diabetes mellitus with diabetic polyneuropathy; I48.0 Paroxysmal atrial fibrillation; M19.90 Unspecified osteoarthritis, unspecified site; J84.112 Idiopathic pulmonary fibrosis; E66.9 Obesity, unspecified; Z68.32 Body mass index [BMI] 32.0-32.9, adult; Z87.891 Personal history of nicotine dependence; Z79.83 Long term (current) use of bisphosphonates; Z79.84 Long term (current) use of oral hypoglycemic drugs; Z79.899 Other long term (current) drug therapy; Z88.5 Allergy status to narcotic agent; Z99.81 Dependence on supplemental oxygen
CPT/HCPCS: 71045; 71275; 80053; 80061; 82550; 82553; 82962 ×2; 83690; 83880; 84484 ×2; 85025; 85379; 93005; 94760; 96360; 96361; 96372; 99285; G0378 ×2; 36415; 36416; J1650; Q9966

== ENCOUNTER 2018-11-17 09:21 | Emergency (ER) | payer MEDICARE, OTHER ==
[2018-11-17 10:14] LABS: #Eosinphils 0.3 thou/uL (0.0-0.7); #Lymphocytes 1.4 thou/uL (1.20-3.40); #Monocytes 0.7 thou/uL (0.11-0.59); #Neutrophils 5.3 thou/uL (1.40-6.50); %Basophils 0.2 % (0.0-1.0); %Eosinophils 4.2 % (0.0-10.0); %Lymphocytes 18.4 % (21.0-51.0); %Monocytes 8.9 % (0.0-10.0); %Neutrophils 68.3 % (42.0-75.0); Hemoglobin 12.5 g/dL (12.0-16.0); Mean Corpuscular HGB CONC 30.9 g/dL (32.0-36.0); Mean Corpuscular Hemoglobin 26.1 pg (27.0-31.0); Mean Corpuscular Volume 84.4 fL (78.0-98.0); Mean Platelet Volume 9.8 fL (7.4-10.4); Platelet Count 164 thou/uL (130-400); RBC Distribution Width 16.4 % (11.5-14.5); Red Blood Cell (RBC) Count 4.77 mill/uL (4.20-5.40); White Blood Cell (WBC) Count 7.7 thou/uL (4.8-10.8)
[2018-11-17] MEDS ORDERED: Acetaminophen 325 MG TAB ONE (10:17)
[2018-11-17 10:32] LABS: ALT (SGPT) 12 U/L (8-55); AST (SGOT) 29 U/L (5-34); Albumin 3.9 g/dL (3.4-4.8); Alkaline Phosphatase 104 U/L (40-150); Anion Gap 13 mmol/L (10-20); BUN (Urea Nitrogen) 12 mg/dL (9.8-20.1); Bilirubin, Total 0.5 mg/dL (0.2-1.2); Calc. Creatinine Clearance 0 mL/min (70-130); Calcium 9.5 mg/dL (7.8-10.44); Carbon Dioxide 23 mmol/L (23-31); Chloride 106 mmol/L (98-107); Estimated GFR-MDRD 72; Globulin 4.1 g/dL (2.4-3.5); Glucose 95 mg/dL (83-110); Potassium 3.7 mmol/L (3.5-5.1); Sodium 138 mmol/L (136-145)
[2018-11-17 10:51] LABS: Bilirubin Negative (Negative); Blood, Urine Negative (Negative); Clarity CLOUDY (Clear); Glucose, Urine (Dipstick) Negative (Negative); Leukocyte Moderate (Negative); Nitrite Negative (Negative); Protein, Urine (Dipstick) Trace mg/dL (Neg-Trace); Specific Gravity, Urine 1.012 (1.002-1.036); Urobilinogen 0.2 mg/dL (0.2-1.0); pH, Urine 7.5 (5.0-9.0)
[2018-11-17 10:54] LABS: Bacteria/HPF 1+ HPF (None Seen); Pathc Cast-AUWi Flag 0.95 (0-2.49); RBC/HPF 0-3 HPF (0-3); Squamous Epithelial None Seen HPF (0-3)
[2018-11-17 10:56] LABS: Yeast-AUWi Flag 30.7 (0-25.0)
[2018-11-17 11:06] LABS: Hyaline Casts/LPF 0-3 HYALINE CAST LPF (0-3 Hyaline); Yeast-All Forms None Seen HPF (None Seen)
--- NOTE | 2018-11-17 11:46 | RAD ---
LUMBAR SPINE THREE VIEWS: History: Back pain. FINDINGS/IMPRESSION: No fracture, subluxation, or bony destruction is seen. Degenerative changes are present. Vascular lorna cifications are noted. POS: OFF
[2018-11-17] MEDS ORDERED: cefTRIAXone\\ROCEPHIN 2 GM VIAL ONE (12:06)
[2018-11-17] MEDS ORDERED: Morphine 2 MG/ML SYRINGE ONE (13:08)
== END 2018-11-17 13:27 | disposition home or self-care (01) ==
LOC: ERS 09:21
DX: N12 Tubulo-interstitial nephritis, not specified as acute or chronic (principal); I48.91 Unspecified atrial fibrillation; E11.40 Type 2 diabetes mellitus with diabetic neuropathy, unspecified; I11.0 Hypertensive heart disease with heart failure; I50.9 Heart failure, unspecified; F41.9 Anxiety disorder, unspecified; F32.9 Major depressive disorder, single episode, unspecified; Z79.899 Other long term (current) drug therapy
CPT/HCPCS: 36415; 51702; 72100; 80053; 81003; 81015; 85025; 87086; 96365; 96375; J0696; J2270

== ENCOUNTER 2018-11-27 07:37 | Observation (INO) | payer MEDICARE, OTHER ==
[2018-11-27 08:46] LABS: #Basophils 0.1 thou/uL (0.0-0.2); #Eosinphils 0.1 thou/uL (0.0-0.7); #Lymphocytes 1.1 thou/uL (1.20-3.40); #Monocytes 0.4 thou/uL (0.11-0.59); %Basophils 0.9 % (0.0-1.0); %Eosinophils 2.4 % (0.0-10.0); %Lymphocytes 18.9 % (21.0-51.0); %Neutrophils 70.8 % (42.0-75.0); Hemoglobin 11.8 g/dL (12.0-16.0); Mean Corpuscular HGB CONC 30.7 g/dL (32.0-36.0); Mean Corpuscular Hemoglobin 26.3 pg (27.0-31.0); Mean Corpuscular Volume 85.6 fL (78.0-98.0); Mean Platelet Volume 9.8 fL (7.4-10.4); Platelet Count 161 thou/uL (130-400); RBC Distribution Width 17.5 % (11.5-14.5); Red Blood Cell (RBC) Count 4.51 mill/uL (4.20-5.40); White Blood Cell (WBC) Count 5.7 thou/uL (4.8-10.8)
[2018-11-27 09:01] LABS: ALT (SGPT) 9 U/L (8-55); AST (SGOT) 26 U/L (5-34); Albumin 3.5 g/dL (3.4-4.8); Alkaline Phosphatase 105 U/L (40-150); Anion Gap 14 mmol/L (10-20); BUN (Urea Nitrogen) 12 mg/dL (9.8-20.1); Bilirubin, Total 0.4 mg/dL (0.2-1.2); Calc. Creatinine Clearance 0 mL/min (70-130); Calcium 8.8 mg/dL (7.8-10.44); Carbon Dioxide 23 mmol/L (23-31); Chloride 104 mmol/L (98-107); Estimated GFR-MDRD 73; Globulin 3.6 g/dL (2.4-3.5); Glucose 100 mg/dL (83-110); Lipase 17 U/L (8-78); Protein, Total 7.1 g/dL (6.0-8.3); Sodium 138 mmol/L (136-145)
--- NOTE | 2018-11-27 09:02 | CT ---
CT ABDOMEN AND PELVIS WITH CONTRAST: HISTORY: Diffuse abdominal pain. COMPARISON: None. FINDINGS: There appears to be some scarring and some old interstitial lung disease in the lung bases. No peric ardial effusion. Dense mitral annular calcifications and aortic valve calcifications. Prior cholecy stectomy. Due to patient rotation and habitus, the left lateral hemiabdomen and hemipelvis sidewalls not comple tely evaluated on this examination. There are dense calcifications of the aorta. No aneurysmal dila tation. Mild submucosal edema of the ascending colon and transverse colon. Debbi trunk and superior mesenteri c arteries are patent. No free intraperitoneal gas or fluid. Chronic-appearing wedge compression deformities at L1, T11, and T9. There is some high-grade narrowing of the ostia of the superior mesenteric artery due to calcific and soft plaque. No hydronephrosis. No abnormal renal enhancing mass. Mild submucosal edema of the descending colon. No retroperitoneal adenopathy. IMPRESSION: 1. Findings suggestive of colitis. This may be infectious or inflammatory. 2. 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 3. No free intraperitoneal gas or fluid. 4. Likely a component of lung disease in the lung disease in the lung bases. 5. Dense mitral annular and aortic valve calcifications. POS: [facility]
[2018-11-27] MEDS ORDERED: Ketorolac Tromethamine 30 MG/ML VIAL ONE (09:08)
[2018-11-27] MEDS ORDERED: Lorazepam 2 MG/ML VIAL ONE (09:08)
[2018-11-27 09:15] LABS: Bilirubin Small (Negative); Blood, Urine Negative (Negative); Clarity CLEAR (Clear); Glucose, Urine (Dipstick) Negative (Negative); Leukocyte Negative (Negative); Nitrite Negative (Negative); Protein, Urine (Dipstick) 30 mg/dL (Neg-Trace); Specific Gravity, Urine 1.043 (1.002-1.036); Urobilinogen 0.2 mg/dL (0.2-1.0)
[2018-11-27 09:15] LABS: Potassium 2.5 mmol/L (3.5-5.1)
[2018-11-27] MEDS ORDERED: Meropenem 2 GM, Admixture Fee 1 EACH in Sodium Chloride 0.9% 100 ML IVPB SCH (09:15)
[2018-11-27 09:17] LABS: Bacteria/HPF None Seen HPF (None Seen); Hyaline Casts/LPF 4-6 HYALINE CAST LPF (0-3 Hyaline); Pathc Cast-AUWi Flag 0.81 (0-2.49); Squamous Epithelial 0-3 HPF (0-3); WBC/HPF 0-3 HPF (0-3)
[2018-11-27 09:28] LABS: Renal Epithelial 0-3 HPF (0-3); Transitional Epithelial 0-3 HPF (0-3)
[2018-11-27] MEDS ORDERED: Potassium Chloride 20 MEQ TAB ONE (10:33)
[2018-11-27] MEDS ORDERED: Dextrose 50% Abboject 50 ML SYRINGE SLOW IVP PRN (11:59)
[2018-11-27] MEDS ORDERED: HumaLOG 300 UNITS/3 ML VIAL SC PRN (11:59)
[2018-11-27] MEDS ORDERED: Dextrose 5% in Water 1,000 ML IV PRN (11:59)
[2018-11-27 12:13] LABS: Lactic Acid 1.2 mmol/L (0.5-2.2)
[2018-11-27 12:28] LABS: Magnesium 1.8 mg/dL (1.6-2.6); Phosphorus 2.3 mg/dL (2.3-4.7)
[2018-11-27 12:32] VITALS: BMI 32.9
[2018-11-27] MEDS ORDERED: Prevnar 13-Val Conj/PF 0.5 ML SYRINGE IM ONE (12:45)
[2018-11-27] MEDS: metroNIDAZOLE 500 MG in Premix Bag 1 BAG IVPB SCH ×2 (13:06→20:01)
[2018-11-27] MEDS: Ciprofloxacin Lactate/D5W 200 MG in Premix Bag 1 BAG IVPB SCH (14:07)
[2018-11-27] MEDS: Potassium Chloride 20 MEQ TAB PO SCH (14:10)
--- NOTE | 2018-11-27 15:54 | CON ---
DATE OF CONSULTATION: 11/27/2018 REASON FOR CONSULTATION: Diarrhea and colitis. HISTORY OF PRESENT ILLNESS: Savita Romero is a 73-year-old woman admitted to the hospital earlier today with persistent diarrhea and abdominal pain and back pain. She actually recently met my GI colleague, Dr. Baldomero Aguilar earlier this week in clinic consultation. She has a history of atrial fibrillation, CHF, and diabetic neuropathy. She had bladder cancer surgery a couple of years ago. She has had recurrent urinary tract infections and has been off and on different antibiotics for the past several months. For about the past 2 months, the patient has had a new diarrhea. This is evidently watery and explosive and she has had several episodes of fecal incontinence. This has not been every day, but most days of the week. She says this has been especially bad over the past week, then yesterday her back pain started to escalate along with the diarrhea and this prompted her presentation. Notably, she has had stool studies about 3 weeks ago showing elevated fecal WBCs, but otherwise negative cultures, negative C. difficile. Dr. Aguilar has planned to perform diagnostic colonoscopy and this was scheduled for next week. The patient says she has had colonoscopies in the past, last one was about 5 years ago and the pediatric colonoscope was required for some reason. Today, she has actually not had any bowel movement and she ate a large breakfast and a large lunch. She was started on ciprofloxacin and Flagyl. A CT scan of the abdomen and pelvis demonstrated changes suggestive of mild submucosal edema and the ascending colon, transverse colon, and descending colon. Stool studies are pending. REVIEW OF SYSTEMS: Full review of systems including constitutional; head, eyes, ears, nose, throat; GI; ; cardiovascular; respiratory; musculoskeletal; and neurologic systems are negative except as noted in the HPI. PAST MEDICAL AND SURGICAL HISTORY: CHF, atrial fibrillation, diabetes with neuropathy, hypertension, hyperlipidemia, and bladder cancer, bladder surgery 2 years ago, osteoporosis, appendectomy, cholecystectomy, and depression/anxiety. SOCIAL HISTORY: No smoking, alcohol, or drug use. FAMILY HISTORY: Noncontributory. ALLERGIES: CODEINE. OUTPATIENT MEDICATIONS: 1. Atenolol. 2. Atorvastatin. 3. Gabapentin. 4. Glimepiride. 5. Omeprazole 20 mg daily. 6. Oxybutynin. 7. Leflunomide. 8. Librax twice daily. 9. Celebrex 200 mg twice daily. 10. Lisinopril. 11. Tramadol. 12. Ibandronate. PHYSICAL EXAMINATION: VITAL SIGNS: Temperature 97.7, pulse 76, blood pressure 146/72, and 95% oxygen saturation on 2 L nasal cannula. GENERAL: Elderly 73-year-old woman, obese, lying in bed comfortably, in no acute distress. SKIN: No jaundice. No rashes were palpable. HEENT: Eyes, no scleral icterus. Extraocular movements intact. ENT, mucous membranes moist. No oral lesions. LYMPH: No submandibular or supraclavicular lymphadenopathy. THYROID: Nontender to palpation. HEART: Regular rate and rhythm. LUNGS: Clear to auscultation bilaterally. ABDOMEN: Bowel sounds are present. The abdomen is soft. There is really no tenderness to palpation throughout the abdomen. No masses or organomegaly appreciated. No guarding or rebound tenderness. EXTREMITIES: No peripheral edema. VESSELS: Radial pulses 2+ bilaterally. NEUROLOGIC: Cranial nerves 2 through 12 intact bilaterally. No focal deficits. LABORATORY STUDIES: WBC 5.7, hemoglobin 11.8, platelets 161. Urinalysis negative. Sodium 138, potassium 2.5, BUN 12, creatinine 0.77. Lactic acid 1.2, total bilirubin 0.4, alkaline phosphatase 105, AST 26, ALT 9, albumin 3.5, and lipase 19. IMAGING STUDIES: CT of the abdomen and pelvis demonstrates prior changes in cholecystectomy. There is mild submucosal edema in the ascending colon, transverse colon, and descending colon. There was also high-grade narrowing at the ostia of the SMA, though adequate flow distally. ASSESSMENT AND PLAN: 1. Chronic diarrhea. 2. Abnormal CT scan suggestive of colitis involving the ascending colon, transverse colon, and descending colon. I would note this patient had recently negative stool studies just a few weeks ago, the stool WBCs were elevated. This is in the context of a lot of antibiotics recently, but note C. difficile was negative last month. Dr. Aguilar had planned for diagnostic colonoscopy for further evaluation and I agree with this plan. We will plan to go ahead and perform colonoscopy this admission. The patient ate a couple of large meals already today, so we will have her on clear liquid diet tomorrow. Plan for bowel preparation tomorrow evening and colonoscopy the following day. The patient is in agreement with this. In the meantime, the patient is on ciprofloxacin and Flagyl. Continue other supportive cares. Thank you for the consultation. Please call anytime with questions or concerns. Job ID: [id number]
[2018-11-27] MEDS: Acetaminophen 325 MG TAB PO PRN ×2 (16:47→23:33)
--- NOTE | 2018-11-27 17:27 | HP ---
CHIEF COMPLAINT: Diarrhea and nausea. HISTORY OF PRESENT ILLNESS: The patient is a 73-year-old female with past medical history of hypertension, pulmonary fibrosis, idiopathic. The patient is on chronic oxygen, diabetes, hypertension, diastolic heart failure, who presents to the hospital with complaints of diarrhea and nausea that has been going on and off for the past couple of months, however, it has worsened. The patient states that she was recently in the hospital about a month and a half ago when she had some chest pain and shortness of breath. At that time, she was evaluated by Cardiology. However, the patient states that she continues to have diarrhea after eating her meals. The patient states that she did follow up with GI as an outpatient and is supposed to get a colonoscopy in the next couple of weeks. However, the patient states that for the past week, she has not been able to eat much, gets very nauseated and has been having more diarrhea than usual. She denies any fevers or chills. She denies any abdominal pain with eating, just states that she feels nauseated. The patient also complains of lower back pain, which has been going on for the past few months and she does have a slip from her primary care doctor that she was supposed to get a lumbar sacral MRI as an outpatient, however that has not happened. The patient also states that she normally gets frequent urinary tract infections and has just recently completed a course of ciprofloxacin couple of days ago. She denies any burning, any dysuria, or any confusion that are associated with UTI. However, the patient does state that she has been having worsening lower back pain. PAST MEDICAL HISTORY: 1. She has a history of diabetes. 2. Hypertension. 3. Reflux. 4. Diastolic heart failure. 5. Idiopathic pulmonary fibrosis. She is on chronic oxygen. 6. Bladder cancer. REVIEW OF SYSTEMS: All negative except for the ones mentioned above in the HPI. PAST SURGICAL HISTORY: She has had a cataract surgery, bladder surgery due to bladder cancer. She has had appendectomy, cholecystectomy, and tubal ligation. SOCIAL HISTORY: She does have a history of smoking, however, quit 30 years ago. Denies any alcohol use or drug use. She lives with her family and she is a full code. FAMILY HISTORY: No history of any heart disease, strokes, or cancers. ALLERGIES: SHE IS ALLERGIC TO CODEINE. HOME MEDICATIONS: As the following, she takes; 1. Atenolol 25 mg b.i.d. 2. Lipitor 20 mg daily. 3. Librax 5/2.5 twice a day. 4. Lasix 20 mg daily. 5. Gabapentin 600 mg b.i.d. 6. Losartan 25 mg daily. 7. Omeprazole 20 mg daily. 8. Oxybutynin 5 mg daily. 9. Zoloft 100 mg daily. PHYSICAL EXAMINATION: VITAL SIGNS: As of the following; temperature of 98.8, pulse 78, blood pressure 140/60, and she is 100% on 2 to 3 L. GENERAL: She is awake, alert, and oriented x3. Does not appear in any distress. HEENT: Normocephalic, atraumatic. No lymphadenopathy noted. CARDIOVASCULAR: S1 and S2 present. No murmurs, rubs, or gallops. LUNGS: Clear to auscultation. No rhonchi or wheezes noted. ABDOMEN: Obese. Bowel sounds are present x2. She has pain on palpation upon epigastric area. NEUROVASCULAR: Neurovascular-monahan, no focal deficits noted. She does have some pain on palpation of her lower lumbar spine area and also some pain to her right paraspinal area. SKIN: She does have some cuts and some bruising, however, nothing significant. LABORATORY RESULTS: As of the following; WBCs of 5.7, hemoglobin of 11.8, hematocrit of 38.5, and platelets of 161. Chemistry; sodium of 138, potassium of 2.5, BUN of 12, and creatinine of 0.77. Her LFTs appeared to be normal. Lipase was 17. She did have a urine. Urine appeared to be very clear. There was no leukocyte esterase and there was no squamous epithelial cells. 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 She also had a lumbar x-ray, which is indicated. She has some degenerative changes. ASSESSMENT AND PLAN: The patient is a 73-year-old female, who presents to the hospital with diarrhea and nausea, which has been going on for the past couple of months, however, it has worsened over the past few weeks. 1. Diarrhea secondary to possible infectious versus vascular versus inflammatory. The patient's CAT scan does show that she has significant colitis. She has been on multiple bouts of antibiotics. I will check a Clostridium difficile on this lady. Also, we will check fecal leukocytes. Also, we will check a TSH to rule out any thyroid disease. We will also consult GI since she was supposed to get a colonoscopy as an outpatient, however, has not scheduled that yet and her symptoms are worsening. I will prophylactically for now, start her on some Cipro and Flagyl. Also, check a lactic acid at the possibility that given her stenosis in the SMA could possibly be contributing to her colitis. However, she has no abdominal pain. 2. Hypokalemia. We will replace her potassium. Also, we will check a magnesium and a phosphorus on this lady. 3. History of hypertension. We will continue her home medications. 4. History of pulmonary fibrosis, currently under control and we will continue her home oxygen. 5. Diabetes. We will check Accu-Cheks a.c. and at bedtime. For now, I will hold her oral medications and I will put her on sliding-scale insulin. 6. Deep venous thrombosis prophylaxis. We will put the patient on Lovenox. I will also continue to have this patient on pain medication. I feel that she is not optimized on any pain medications. Also, if the patient is unable to lie flat, the family did request me to get an MRI while she was in-house. However, I did explain to the patient and the patient's family that until she is able to lie flat, the MRI would not be obtainable. The patient and family agreed and agreed on better controlling her pain before an MRI is pursued. Job ID: [id number]
[2018-11-27] MEDS: Fentanyl 100 MCG/2 ML VIAL SLOW IVP PRN ×2 (18:24→21:05)
[2018-11-27] MEDS: Gabapentin 300 MG CAP PO SCH (20:01)
[2018-11-27] MEDS: Atenolol 25 MG TAB PO SCH (20:02)
[2018-11-27] MEDS: Famotidine/PF 20 mg/2ml Vial SLOW IVP SCH (20:03)
[2018-11-27] MEDS: traMADol HCl 50 MG TAB PO PRN (23:31)
[2018-11-28] MEDS: Fentanyl 100 MCG/2 ML VIAL SLOW IVP PRN ×3 (00:36→17:32)
[2018-11-28] MEDS: Ciprofloxacin Lactate/D5W 200 MG in Premix Bag 1 BAG IVPB SCH ×2 (00:54→13:07)
[2018-11-28] MEDS: traMADol HCl 50 MG TAB PO PRN ×2 (03:25→08:01)
[2018-11-28] MEDS: Acetaminophen 325 MG TAB PO PRN ×2 (03:26→18:56)
[2018-11-28] MEDS: metroNIDAZOLE 500 MG in Premix Bag 1 BAG IVPB SCH ×3 (03:29→19:41)
[2018-11-28 07:17] LABS: #Eosinphils 0.3 thou/uL (0.0-0.7); #Lymphocytes 1.2 thou/uL (1.20-3.40); #Monocytes 0.4 thou/uL (0.11-0.59); #Neutrophils 2.5 thou/uL (1.40-6.50); %Basophils 0.7 % (0.0-1.0); %Lymphocytes 27.1 % (21.0-51.0); %Monocytes 9.2 % (0.0-10.0); %Neutrophils 57.1 % (42.0-75.0); Hemoglobin 11.3 g/dL (12.0-16.0); Mean Corpuscular HGB CONC 30.7 g/dL (32.0-36.0); Mean Corpuscular Hemoglobin 26.7 pg (27.0-31.0); Mean Corpuscular Volume 86.8 fL (78.0-98.0); Mean Platelet Volume 9.8 fL (7.4-10.4); Platelet Count 130 thou/uL (130-400); RBC Distribution Width 17.6 % (11.5-14.5); Red Blood Cell (RBC) Count 4.22 mill/uL (4.20-5.40); White Blood Cell (WBC) Count 4.3 thou/uL (4.8-10.8)
[2018-11-28 07:31] LABS: Anion Gap 8 mmol/L (10-20); BUN (Urea Nitrogen) 11 mg/dL (9.8-20.1); Calc. Creatinine Clearance 98 mL/min (70-130); Calcium 8.6 mg/dL (7.8-10.44); Carbon Dioxide 30 mmol/L (23-31); Chloride 107 mmol/L (98-107); Estimated GFR-MDRD 72; Glucose 117 mg/dL (83-110); Sodium 142 mmol/L (136-145)
[2018-11-28] MEDS: Atenolol 25 MG TAB PO SCH ×2 (08:00→19:42)
[2018-11-28] MEDS: Oxybutynin 5 MG TAB PO SCH (08:00)
[2018-11-28] MEDS: Gabapentin 300 MG CAP PO SCH ×2 (08:01→19:42)
[2018-11-28] MEDS: Atorvastatin Calcium 10 MG TAB PO SCH (08:02)
[2018-11-28] MEDS: Losartan 25 MG TAB PO SCH (08:03)
[2018-11-28] MEDS: Famotidine/PF 20 mg/2ml Vial SLOW IVP SCH ×2 (08:03→19:43)
[2018-11-28] MEDS ORDERED: Ketorolac Tromethamine 30 MG/ML VIAL IVP SCH (10:15)
[2018-11-28] MEDS: Potassium Chloride 20 MEQ TAB PO SCH ×2 (10:51→14:22)
--- NOTE | 2018-11-28 11:40 | PRG ---
DATE OF SERVICE: 11/28/2018 SUBJECTIVE: Ms. Romero is doing okay this morning. Her primary complaint remains ongoing back pain. She actually has not had any bowel movements since we talked yesterday. She is on a clear liquid diet this morning, anticipating procedure tomorrow. OBJECTIVE: VITAL SIGNS: Temperature 97.8, pulse 78, blood pressure 154/76, 96% oxygen saturation on 2 L nasal cannula. GENERAL: No acute distress. HEART: Regular rate and rhythm. LUNGS: Clear to auscultation bilaterally. ABDOMEN: Soft, nontender to palpation. EXTREMITIES: No peripheral edema. LABORATORY STUDIES: Sodium 142, potassium 3.0, BUN 11, creatinine 0.78, glucose 117. WBC 4.3, hemoglobin 11.3, platelets 130. Stool studies, not collected yet as the patient has not had any bowel movement. ASSESSMENT AND PLAN: 1. Chronic diarrhea. 2. Abnormal CT of the abdomen, suggesting possible colitis involving the ascending, transverse, and descending colon. We are going to stick with the plan to perform diagnostic colonoscopy tomorrow. We will obtain random colon biopsies even if the colonic mucosa appears normal, to rule out microscopic colitis. Interestingly, the patient has not had any bowel movements over the past day. Job ID: [id number]
--- NOTE | 2018-11-28 13:48 | PDOC.PN ---
- Subjective Encounter Start Date: 11/28/18 Encounter Start Time: 08:40 Pt seen for followup re; chronic diarrhea. c/o low back pain. Diarrhea is better. - Objective Resuscitation Status - Order Detail: 11/27/18 11:31 Resuscitation Status Routine Resuscitation Status: FULL: Full Resuscitation MAR Reviewed: Yes Vital Signs & Weight: Vital Signs (12 hours) Temp Pulse Resp BP BP BP Pulse Ox 11/28/18 12:09 98.4 F 72 18 150/77 H 97 11/28/18 08:00 97.8 F 78 20 154/76 H 154/76 H 96 11/28/18 05:04 97.8 F 73 18 145/73 H 96 Weight Weight 216 lb 9 oz I&O: 11/27/18 11/28/18 11/29/18 06:59 06:59 06:59 Intake Total 1919 Balance 1919 Result Diagrams: 11/28/18 06:25 11/28/18 06:25 Additional Labs: Accuchecks 11/28/18 11/28/18 11/27/18 11:06 05:03 19:31 POC Glucose 81 70 87 11/27/18 16:11 POC Glucose 73 Labs reviewed by me Phys Exam - Physical Examination Obese HEENT: moist MMs Neck: supple Respiratory: clear to auscultation bilateral Cardiovascular: RRR Gastrointestinal: soft mild lumbar spine tenderness Neurological: moves all 4 limbs Psychiatric: normal affect Dx/Plan (1) Chronic diarrhea Code(s): K52.9 - NONINFECTIVE GASTROENTERITIS AND COLITIS, UNSPECIFIED Status : Acute Comment: for colonoscopy tomorrow (2) Hypokalemia Code(s): E87.6 - HYPOKALEMIA Status: Acute Comment: replace potassium (3) Low back pain Code(s): M54.5 - LOW BACK PAIN Status: Chronic Comment: trial lidocaine patch; chronic vertebral fractures (4) Anxiety and depression Code(s): F41.9 - ANXIETY DISORDER, UNSPECIFIED; F32.9 - MAJOR DEPRESSIVE DISORDER, SINGLE EPISODE, UNSPECIFIED Status: Chronic Comment: mild, stable (5) COPD (chronic obstructive pulmonary disease) Status: Chronic Comment: stable (6) Diabetes type 2, controlled Code(s): E11.9 - TYPE 2 DIABETES MELLITUS WITHOUT COMPLICATIONS Status: Chronic Comment: controlled (7) Dyslipidemia Code(s): E78.5 - HYPERLIPIDEMIA, UNSPECIFIED Status: Chronic Comment: stable (8) GERD (gastroesophageal reflux disease) Code(s): K21.9 - GASTRO-ESOPHAGEAL REFLUX DISEASE WITHOUT ESOPHAGITIS Status: Chronic Comment: stable (9) Hypertension Code(s): I10 - ESSENTIAL (PRIMARY) HYPERTENSION Status: Chronic Comment: monitor vital signs, titrate antihypertensives as needed - Plan out of bed/ambulate * . Review of Systems - Review of Systems Gastrointestinal: Diarrhea. negative: Nausea, Vomiting, Abdominal Pain, Constipation, Melena, Hematochezia Musculoskeletal: Back Pain. negative: Neck Pain, Shoulder Pain, Arm Pain, Hand Pain, Leg Pain, Foot Pain - Medications/Allergies Allergies/Adverse Reactions: Allergies Allergy/AdvReac Type Severity Reaction Status Date / Time codeine Allergy TACHYCARDIA Verified 11/27/18 12:03 Medications: Current Medications Acetaminophen (Tylenol) 650 mg PO Q4H PRN PRN Reason: Headache/Fever/Mild Pain (1-3) Last Admin: 11/28/18 03:26 Dose: 650 mg Atenolol (Tenormin) 25 mg PO BID [facility] Last Admin: 11/28/18 08:00 Dose: 25 mg Atorvastatin Calcium (Lipitor) 10 mg PO DAILY [facility] Last Admin: 11/28/18 08:02 Dose: 10 mg Dextrose/Water (Dextrose 50%) 25 gm SLOW IVP PRN PRN PRN Reason: Hypoglycemia Famotidine (Pepcid) 20 mg SLOW IVP Q12HR [facility] Last Admin: 11/28/18 08:03 Dose: 20 mg Fentanyl (Sublimaze) 25 mcg SLOW IVP Q2H PRN PRN Reason: Mild-Moderate Pain (1-5) Last Admin: 11/28/18 12:11 Dose: 25 mcg Gabapentin (Neurontin) 600 mg PO BID [facility] Last Admin: 11/28/18 08:01 Dose: 600 mg Glucagon (Glucagon) 1 mg IM PRN PRN PRN Reason: Hypoglycemia Ciprofloxacin/Dextrose 200 mg/ (Device) 100 mls @ 100 mls/hr IVPB 0000,1200 [facility] Last Admin: 11/28/18 13:07 Dose: 100 mls Metronidazole 500 mg/ Device 100 mls @ 100 mls/hr IVPB 0400,1200,2000 [facility] Last Admin: 11/28/18 11:57 Dose: 100 mls Dextrose/Water (D5w) 1,000 mls @ 0 mls/hr IV .Q0M PRN PRN Reason: Hypoglycemia Insulin Human Lispro (Humalog) 0 units SC .MILD SLIDING SCALE PRN PRN Reason: Mild Correctional Scale Ketorolac Tromethamine (Toradol) 30 mg IVP ONE [facility] Stop: 12/03/18 11:00 Last Admin: 11/28/18 10:52 Dose: 30 mg Ketorolac Tromethamine (Toradol) 15 mg IVP Q8H PRN PRN Reason: Pain Stop: 12/03/18 10:13 Losartan Potassium (Cozaar) 25 mg PO DAILY [facility] Last Admin: 11/28/18 08:03 Dose: 25 mg Oxybutynin Chloride (Ditropan) 5 mg PO DAILY [facility] Last Admin: 11/28/18 08:00 Dose: 5 mg Polyethylene Glycol/Electrolytes (Golytely) 4,000 ml PO 1500 [facility] Stop: 11/28/18 23:59 Potassium Chloride (K-Dur) 40 meq PO Q4H [facility] Stop: 11/28/18 14:16 Last Admin: 11/28/18 10:51 Dose: 40 meq Sertraline HCl (Zoloft) 100 mg PO DAILY [facility] Last Admin: 11/28/18 08:00 Dose: 100 mg Tramadol HCl (Ultram) 50 mg PO Q4H PRN PRN Reason: Moderate Pain (4-6) Last Admin: 11/28/18 08:01 Dose: 50 mg
[2018-11-28] MEDS ORDERED: Cyclobenzaprine 10 MG TAB PO SCH (14:00)
[2018-11-28] MEDS: Lidocaine 5% Patch TD SCH (14:22)
[2018-11-28] MEDS ORDERED: GoLYTELY 4,000 ml Bottle PO SCH (15:00)
[2018-11-29] MEDS: Ciprofloxacin Lactate/D5W 200 MG in Premix Bag 1 BAG IVPB SCH ×3 (00:36→23:25)
[2018-11-29] MEDS: Lidocaine Patch Removal 1 EACH TOP SCH (02:30)
[2018-11-29] MEDS: metroNIDAZOLE 500 MG in Premix Bag 1 BAG IVPB SCH ×3 (03:25→21:36)
[2018-11-29] MEDS: Fentanyl 100 MCG/2 ML VIAL SLOW IVP PRN ×4 (03:27→11:22)
[2018-11-29] MEDS ORDERED: Sodium Chloride 0.9% 100 ML ONE (09:21)
[2018-11-29] MEDS: Ketorolac Tromethamine 30 MG/ML VIAL IVP PRN (09:33)
[2018-11-29] MEDS ORDERED: PROPOFOL 200 MG/20 ML VIAL ONE (10:02)
[2018-11-29] MEDS ORDERED: Lidocaine 1% PF 5 ML VIAL ONE (10:02)
[2018-11-29] MEDS: Atorvastatin Calcium 10 MG TAB PO SCH (11:32)
[2018-11-29] MEDS: Atenolol 25 MG TAB PO SCH ×2 (11:32→21:34)
[2018-11-29] MEDS: Oxybutynin 5 MG TAB PO SCH (11:33)
[2018-11-29] MEDS: Gabapentin 300 MG CAP PO SCH ×2 (11:33→21:35)
[2018-11-29] MEDS: Famotidine/PF 20 mg/2ml Vial SLOW IVP SCH ×2 (11:33→21:36)
[2018-11-29] MEDS: Losartan 25 MG TAB PO SCH (11:33)
[2018-11-29] MEDS ORDERED: Ketamine 50 MG/ML (10ML VIAL) ONE (12:07)
[2018-11-29] MEDS ORDERED: Adenosine 6 MG/2 ML VIAL ONE (13:14)
--- NOTE | 2018-11-29 13:34 | OP ---
DATE OF PROCEDURE: 11/29/2018 LIVE OUT [place] SURGEON: None. PROCEDURE PERFORMED: Colonoscopy with snare polypectomy and biopsies. INDICATIONS: 1. Chronic diarrhea. 2. Abnormal CT scan, suggestive of possible mucosal thickening in the ascending colon, transverse colon, and descending colon. MEDICATIONS: See Anesthesia record. FINDINGS: After discussion of the risks, benefits, and alternatives of the procedure, informed consent was obtained and witnessed. Pre-endoscopic cardiopulmonary examination was satisfactory. Time-out was performed before sedation was achieved. Sedation was achieved with Anesthesia assistance in the endoscopy unit. A digital rectal exam was performed, which was unremarkable. A Pentax adult colonoscope was inserted into the anus and passed forward to the cecum in the usual fashion. The cecal base was identified by the appendiceal orifice as well as the ileocecal valve. The terminal ileum was not intubated. The colonoscope was slowly withdrawn in a gradual and circumferential manner with careful examination of the colonic mucosa. The quality of the prep was fair to poor within the right colon, and it is possible that smaller lesions or polyps may have been missed in this area. The quality of the preparation elsewhere in the colon was satisfactory. In the transverse colon, there was a polyp measuring 5 mm in diameter. This was completely removed with hot snare and retrieved for pathology. In the sigmoid colon, there was a sessile polyp measuring about 8 mm in diameter. This was completely removed with hot snare and retrieved for pathology. In the rectum on retroflexion, there was another sessile polyp measuring about 2 mm. This was completely removed with hot snare and retrieved for pathology. The remainder of the colonic mucosa appeared grossly normal. I did obtain random biopsies from the right and left colon for histology to rule out microscopic colitis. There are internal hemorrhoids on retroflexion. The colonoscope was completely withdrawn and the patient allowed to recover. The patient tolerated the procedure well. There were no immediate postprocedure complications. IMPRESSION: 1. Fair to poor prep in the right colon, satisfactory elsewhere in the colon. 2. Normal colonic mucosa throughout. Random biopsies taken from the right and left colon to rule out microscopic colitis. 3. A 5-mm transverse colon polyp, completely removed with hot snare and retrieved for pathology. 4. An 8-mm sigmoid colon polyp, completely removed with hot snare and retrieved for pathology. 5. A 2-mm rectal polyp, completely removed with hot snare and retrieved for pathology. 6. Internal hemorrhoids. RECOMMENDATIONS: 1. Follow up pathology on the random colon biopsies and colon polyps. 2. Colonoscopy should be repeated at the 6-to 12-month interval, due to the poor prep in the right colon. Job ID: [id number]
[2018-11-29] MEDS: traMADol HCl 50 MG TAB PO PRN ×3 (14:04→23:23)
[2018-11-29] MEDS: Cyclobenzaprine 10 MG TAB PO PRN ×2 (14:05→23:23)
[2018-11-29] MEDS: Potassium Chloride 20 MEQ TAB PO SCH (14:05)
--- NOTE | 2018-11-29 17:29 | PDOC.PN ---
- Subjective Encounter Start Date: 11/29/18 Encounter Start Time: 09:20 Pt seen for followup re: diarrhea. Back pain still +, still has diarrhea. - Objective Resuscitation Status - Order Detail: 11/27/18 11:31 Resuscitation Status Routine Resuscitation Status: FULL: Full Resuscitation Vital Signs & Weight: Vital Signs (12 hours) Temp Pulse Resp BP BP Pulse Ox 11/29/18 13:30 98.5 F 89 20 120/75 96 11/29/18 11:32 78 11/29/18 07:11 98.5 F 78 18 177/92 H 97 Weight Weight 216 lb 9 oz I&O: 11/28/18 11/29/18 11/30/18 06:59 06:59 06:59 Intake Total 1919 1500 Balance 1919 1500 Result Diagrams: 11/28/18 06:25 11/28/18 06:25 Additional Labs: Accuchecks 11/29/18 11/29/18 11/29/18 16:30 10:56 05:58 POC Glucose 92 88 76 11/28/18 20:15 POC Glucose 100 Phys Exam - Physical Examination Constitutional: NAD HEENT: moist MMs Neck: supple Respiratory: clear to auscultation bilateral Cardiovascular: RRR Gastrointestinal: soft Neurological: moves all 4 limbs Psychiatric: normal affect Dx/Plan (1) Chronic diarrhea Code(s): K52.9 - NONINFECTIVE GASTROENTERITIS AND COLITIS, UNSPECIFIED Status : Acute Comment: for colonoscopy today (2) Hypokalemia Code(s): E87.6 - HYPOKALEMIA Status: Acute Comment: replace potassium (3) Low back pain Code(s): M54.5 - LOW BACK PAIN Status: Chronic Comment: on lidocaine patch and flexeril PRN (4) Anxiety and depression Code(s): F41.9 - ANXIETY DISORDER, UNSPECIFIED; F32.9 - MAJOR DEPRESSIVE DISORDER, SINGLE EPISODE, UNSPECIFIED Status: Chronic Comment: mild, stable (5) COPD (chronic obstructive pulmonary disease) Status: Chronic Comment: stable (6) Diabetes type 2, controlled Code(s): E11.9 - TYPE 2 DIABETES MELLITUS WITHOUT COMPLICATIONS Status: Chronic Comment: controlled (7) Dyslipidemia Code(s): E78.5 - HYPERLIPIDEMIA, UNSPECIFIED Status: Chronic Comment: stable (8) GERD (gastroesophageal reflux disease) Code(s): K21.9 - GASTRO-ESOPHAGEAL REFLUX DISEASE WITHOUT ESOPHAGITIS Status: Chronic Comment: stable (9) Hypertension Code(s): I10 - ESSENTIAL (PRIMARY) HYPERTENSION Status: Chronic Comment: start scheduled hydralazine - Plan * . Review of Systems - Review of Systems Respiratory: negative: Cough, Shortness of Breath, SOB with Excertion, Pleuritic Pain, Wheezing Cardiovascular: negative: chest pain, palpitations, orthopnea, paroxysmal nocturnal dyspnea, edema, light headedness Gastrointestinal: Diarrhea Musculoskeletal: Back Pain - Medications/Allergies Allergies/Adverse Reactions: Allergies Allergy/AdvReac Type Severity Reaction Status Date / Time codeine Allergy TACHYCARDIA Verified 11/27/18 12:03 Medications: Current Medications Acetaminophen (Tylenol) 650 mg PO Q4H PRN PRN Reason: Headache/Fever/Mild Pain (1-3) Last Admin: 11/28/18 18:56 Dose: 650 mg Atenolol (Tenormin) 25 mg PO BID [facility] Last Admin: 11/29/18 11:32 Dose: Not Given Atorvastatin Calcium (Lipitor) 10 mg PO DAILY [facility] Last Admin: 11/29/18 11:32 Dose: Not Given Cyclobenzaprine HCl (Flexeril) 10 mg PO TIDPRN PRN PRN Reason: Muscle Spasm Last Admin: 11/29/18 14:05 Dose: 10 mg Dextrose/Water (Dextrose 50%) 25 gm SLOW IVP PRN PRN PRN Reason: Hypoglycemia Famotidine (Pepcid) 20 mg SLOW IVP Q12HR [facility] Last Admin: 11/29/18 11:33 Dose: Not Given Fentanyl (Sublimaze) 25 mcg SLOW IVP Q2H PRN PRN Reason: Mild-Moderate Pain (1-5) Last Admin: 11/29/18 11:22 Dose: 25 mcg Gabapentin (Neurontin) 600 mg PO BID [facility] Last Admin: 11/29/18 11:33 Dose: Not Given Glucagon (Glucagon) 1 mg IM PRN PRN PRN Reason: Hypoglycemia Ciprofloxacin/Dextrose 200 mg/ (Device) 100 mls @ 100 mls/hr IVPB 0000,1200 [facility] Last Admin: 11/29/18 14:03 Dose: 100 mls Metronidazole 500 mg/ Device 100 mls @ 100 mls/hr IVPB 0400,1200,2000 [facility] Last Admin: 11/29/18 14:04 Dose: Not Given Dextrose/Water (D5w) 1,000 mls @ 0 mls/hr IV .Q0M PRN PRN Reason: Hypoglycemia Insulin Human Lispro (Humalog) 0 units SC .MILD SLIDING SCALE PRN PRN Reason: Mild Correctional Scale Ketorolac Tromethamine (Toradol) 30 mg IVP ONE [facility] Stop: 12/03/18 11:00 Last Admin: 11/28/18 10:52 Dose: 30 mg Ketorolac Tromethamine (Toradol) 15 mg IVP Q8H PRN PRN Reason: Pain Stop: 12/03/18 10:13 Last Admin: 11/29/18 09:33 Dose: 15 mg Lidocaine (Lidoderm 5% Patch) 1 patch TD Q24HR [facility] Last Admin: 11/28/18 14:22 Dose: 1 patch Losartan Potassium (Cozaar) 25 mg PO DAILY [facility] Last Admin: 11/29/18 11:33 Dose: Not Given Miscellaneous Medication (Lidocaine Patch Removal) 1 each TOP 0200 [facility] Last Admin: 11/29/18 02:30 Dose: 1 each Oxybutynin Chloride (Ditropan) 5 mg PO DAILY [facility] Last Admin: 11/29/18 11:33 Dose: Not Given Sertraline HCl (Zoloft) 100 mg PO DAILY [facility] Last Admin: 11/29/18 11:33 Dose: Not Given Tramadol HCl (Ultram) 50 mg PO Q4H PRN PRN Reason: Moderate Pain (4-6) Last Admin: 11/29/18 14:04 Dose: 50 mg
[2018-11-29] MEDS: Lidocaine 5% Patch TD SCH (17:55)
[2018-11-29] MEDS ORDERED: Potassium Chloride 20 MEQ TAB PO SCH ×2 (18:00→20:00)
[2018-11-29] MEDS: hydrALAZINE 25 MG TAB PO SCH (21:36)
[2018-11-30] MEDS: Fentanyl 100 MCG/2 ML VIAL SLOW IVP PRN ×2 (01:44→15:27)
[2018-11-30] MEDS: Lidocaine Patch Removal 1 EACH TOP SCH (02:18)
[2018-11-30] MEDS: metroNIDAZOLE 500 MG in Premix Bag 1 BAG IVPB SCH ×3 (04:39→20:46)
[2018-11-30] MEDS: Ketorolac Tromethamine 30 MG/ML VIAL IVP PRN (04:46)
[2018-11-30 06:37] LABS: #Eosinphils 0.4 thou/uL (0.0-0.7); #Lymphocytes 1.4 thou/uL (1.20-3.40); #Monocytes 0.5 thou/uL (0.11-0.59); #Neutrophils 3.8 thou/uL (1.40-6.50); %Basophils 0.4 % (0.0-1.0); %Eosinophils 6.4 % (0.0-10.0); %Lymphocytes 22.8 % (21.0-51.0); %Monocytes 7.4 % (0.0-10.0); Hemoglobin 12.2 g/dL (12.0-16.0); Mean Corpuscular HGB CONC 29.9 g/dL (32.0-36.0); Mean Corpuscular Hemoglobin 25.6 pg (27.0-31.0); Mean Corpuscular Volume 85.6 fL (78.0-98.0); Mean Platelet Volume 10.1 fL (7.4-10.4); Platelet Count 151 thou/uL (130-400); RBC Distribution Width 17.3 % (11.5-14.5); Red Blood Cell (RBC) Count 4.78 mill/uL (4.20-5.40); White Blood Cell (WBC) Count 6.1 thou/uL (4.8-10.8)
[2018-11-30 07:07] LABS: Anion Gap 12 mmol/L (10-20); BUN (Urea Nitrogen) 8 mg/dL (9.8-20.1); Calc. Creatinine Clearance 101 mL/min (70-130); Carbon Dioxide 28 mmol/L (23-31); Chloride 102 mmol/L (98-107); Estimated GFR-MDRD 74; Glucose 99 mg/dL (83-110); Potassium 4.8 mmol/L (3.5-5.1); Sodium 137 mmol/L (136-145)
[2018-11-30] MEDS: Gabapentin 300 MG CAP PO SCH ×2 (08:26→20:47)
[2018-11-30] MEDS: Atenolol 25 MG TAB PO SCH ×2 (08:26→20:47)
[2018-11-30] MEDS: hydrALAZINE 25 MG TAB PO SCH ×3 (08:26→20:47)
[2018-11-30] MEDS: Losartan 25 MG TAB PO SCH (08:26)
[2018-11-30] MEDS: Oxybutynin 5 MG TAB PO SCH (08:26)
[2018-11-30] MEDS: Famotidine/PF 20 mg/2ml Vial SLOW IVP SCH ×2 (08:27→20:46)
[2018-11-30] MEDS: Atorvastatin Calcium 10 MG TAB PO SCH (08:27)
[2018-11-30] MEDS: Ciprofloxacin Lactate/D5W 200 MG in Premix Bag 1 BAG IVPB SCH ×2 (11:19→23:52)
[2018-11-30] MEDS: Lidocaine 5% Patch TD SCH (15:19)
--- NOTE | 2018-11-30 16:26 | PRG ---
DATE OF SERVICE: 11/30/2018 SUBJECTIVE: Ms. Romero is actually sleeping, and when I woke her up, states she is feeling better. Her abdomen does not hurt. She reports she is eating okay. She came in for diarrhea. She had been seen for this in the office with some incontinence and had a negative stool studies as an outpatient. We had her scheduled for an outpatient colonoscopy to evaluate for possible microscopic colitis. Here, she had a CAT scan showing a possible mild submucosal edema. Stool studies are negative for fecal white blood cells. There was overabundance of yeast on culture growth. She underwent colonoscopy yesterday. These biopsies are pending. Presently, she is feeling well. OBJECTIVE: VITAL SIGNS: Temperature is 98.2, pulse 93, blood pressure 158/76. ABDOMEN: Soft and nontender. LUNGS: Clear. LABORATORY DATA: White count 6.1, hemoglobin 12.2, platelet count 151. Basic metabolic profile is normal. Hemoglobin A1c last year was 9.8. 10/09/2018, ova and parasite negative. Stool culture showed negative so far. The preliminary, overgrowth of yeast. Similarly, 11/06/2018, stool tests were negative for C. diff, Campylobacter, lactoferrin. ASSESSMENT AND PLAN: Ms. Romero may have had some diarrhea related to microscopic colitis overgrowth of yeast or even some of her medications. Presently, there are no overt signs of colitis endoscopically. Biopsies are pending. We will await for those. Hopefully, she will be able to go home soon probably tomorrow, and she can follow up in her office regarding her biopsy results. Job ID: [id number]
[2018-11-30] MEDS: traMADol HCl 50 MG TAB PO PRN ×2 (18:18→21:57)
[2018-11-30] MEDS: Cyclobenzaprine 10 MG TAB PO PRN ×2 (18:20→21:57)
--- NOTE | 2018-11-30 21:43 | PDOC.PN ---
- Subjective Encounter Start Date: 11/30/18 Encounter Start Time: 13:00 Patient seen and examined for Abd pain/?Colitis. Abd pain improving. No new complaints. No overnight events - Objective Resuscitation Status - Order Detail: 11/27/18 11:31 Resuscitation Status Routine Resuscitation Status: FULL: Full Resuscitation MAR Reviewed: Yes Vital Signs & Weight: Vital Signs (12 hours) Temp Pulse Resp BP BP BP Pulse Ox 11/30/18 20:47 94 11/30/18 20:40 98.1 F 94 18 147/63 H 97 11/30/18 20:00 98.1 F 94 18 147/63 H 97 11/30/18 15:20 93 158/76 H 11/30/18 12:00 98.2 F 93 18 125/73 93 L Weight Weight 216 lb 9 oz I&O: 11/29/18 11/30/18 12/01/18 06:59 06:59 06:59 Intake Total 1500 640 350 Output Total 2 Balance 1500 638 350 Result Diagrams: 11/30/18 06:03 11/30/18 06:03 Additional Labs: Accuchecks 11/30/18 11/30/18 11/30/18 20:47 16:39 10:41 POC Glucose 132 H 87 132 H 11/30/18 04:39 POC Glucose 103 Phys Exam - Physical Examination Constitutional: NAD Respiratory: no wheezing, no rhonchi Cardiovascular: RRR, no rub Gastrointestinal: soft, positive bowel sounds mild gen tenderness, no guarding/rigidity Musculoskeletal: no edema Neurological: moves all 4 limbs Dx/Plan - Plan DVT proph w/SCDs 1. Diarrhea/Abd pain/Colitis - improving, s/p Colonscopy 2. Chronic low back pain - scheduled for MRI as outpt 3. Hypockalemia 4. Obesity BMI 32.9 5. DM2/HTN PLAN: Cont Atbx Change Pepcid to PO DC home once cleared by GI Cont other meds as below AM labs Review of Systems - Review of Systems Constitutional: negative: fever, chills, sweats, weakness, malaise, other Cardiovascular: negative: chest pain, palpitations, orthopnea, paroxysmal nocturnal dyspnea, edema, light headedness, other Gastrointestinal: negative: Nausea, Vomiting, Abdominal Pain, Diarrhea, Constipation, Melena, Hematochezia, Other - Medications/Allergies Allergies/Adverse Reactions: Allergies Allergy/AdvReac Type Severity Reaction Status Date / Time codeine Allergy TACHYCARDIA Verified 11/27/18 12:03 Medications: Current Medications Acetaminophen (Tylenol) 650 mg PO Q4H PRN PRN Reason: Headache/Fever/Mild Pain (1-3) Last Admin: 11/28/18 18:56 Dose: 650 mg Atenolol (Tenormin) 25 mg PO BID [facility] Last Admin: 11/30/18 20:47 Dose: 25 mg Atorvastatin Calcium (Lipitor) 10 mg PO DAILY [facility] Last Admin: 11/30/18 08:27 Dose: 10 mg Cyclobenzaprine HCl (Flexeril) 10 mg PO TIDPRN PRN PRN Reason: Muscle Spasm Last Admin: 11/30/18 18:20 Dose: 10 mg Dextrose/Water (Dextrose 50%) 25 gm SLOW IVP PRN PRN PRN Reason: Hypoglycemia Famotidine (Pepcid) 20 mg SLOW IVP Q12HR [facility] Last Admin: 11/30/18 20:46 Dose: 20 mg Fentanyl (Sublimaze) 25 mcg SLOW IVP Q2H PRN PRN Reason: Mild-Moderate Pain (1-5) Last Admin: 11/30/18 15:27 Dose: 25 mcg Gabapentin (Neurontin) 600 mg PO BID [facility] Last Admin: 11/30/18 20:47 Dose: 600 mg Glucagon (Glucagon) 1 mg IM PRN PRN PRN Reason: Hypoglycemia Hydralazine HCl (Apresoline) 25 mg PO TID [facility] Last Admin: 11/30/18 20:47 Dose: 25 mg Ciprofloxacin/Dextrose 200 mg/ (Device) 100 mls @ 100 mls/hr IVPB 0000,1200 [facility] Last Admin: 11/30/18 11:19 Dose: 100 mls Metronidazole 500 mg/ Device 100 mls @ 100 mls/hr IVPB 0400,1200,2000 [facility] Last Admin: 11/30/18 20:46 Dose: 100 mls Dextrose/Water (D5w) 1,000 mls @ 0 mls/hr IV .Q0M PRN PRN Reason: Hypoglycemia Insulin Human Lispro (Humalog) 0 units SC .MILD SLIDING SCALE PRN PRN Reason: Mild Correctional Scale Ketorolac Tromethamine (Toradol) 30 mg IVP ONE [facility] Stop: 12/03/18 11:00 Last Admin: 11/28/18 10:52 Dose: 30 mg Ketorolac Tromethamine (Toradol) 15 mg IVP Q8H PRN PRN Reason: Pain Stop: 12/03/18 10:13 Last Admin: 11/30/18 04:46 Dose: 15 mg Lidocaine (Lidoderm 5% Patch) 1 patch TD Q24HR [facility] Last Admin: 11/30/18 15:19 Dose: 1 patch Losartan Potassium (Cozaar) 25 mg PO DAILY [facility] Last Admin: 11/30/18 08:26 Dose: 25 mg Miscellaneous Medication (Lidocaine Patch Removal) 1 each TOP 0200 [facility] Last Admin: 11/30/18 02:18 Dose: Not Given Oxybutynin Chloride (Ditropan) 5 mg PO DAILY [facility] Last Admin: 11/30/18 08:26 Dose: 5 mg Sertraline HCl (Zoloft) 100 mg PO DAILY [facility] Last Admin: 11/30/18 08:26 Dose: 100 mg Tramadol HCl (Ultram) 50 mg PO Q4H PRN PRN Reason: Moderate Pain (4-6) Last Admin: 11/30/18 18:18 Dose: 50 mg
[2018-12-01] MEDS: traMADol HCl 50 MG TAB PO PRN ×4 (02:17→20:07)
[2018-12-01] MEDS: Lidocaine Patch Removal 1 EACH TOP SCH (02:21)
[2018-12-01] MEDS: metroNIDAZOLE 500 MG in Premix Bag 1 BAG IVPB SCH ×3 (03:56→20:02)
[2018-12-01] MEDS: Cyclobenzaprine 10 MG TAB PO PRN (06:01)
[2018-12-01] MEDS: Atorvastatin Calcium 10 MG TAB PO SCH (08:48)
[2018-12-01] MEDS: Famotidine 20 MG TAB PO SCH ×2 (08:48→20:08)
[2018-12-01] MEDS: Oxybutynin 5 MG TAB PO SCH (08:48)
[2018-12-01] MEDS: Gabapentin 300 MG CAP PO SCH ×2 (08:48→20:08)
[2018-12-01] MEDS: hydrALAZINE 25 MG TAB PO SCH ×3 (08:50→20:08)
[2018-12-01] MEDS: Atenolol 25 MG TAB PO SCH ×2 (08:50→20:08)
[2018-12-01] MEDS: Losartan 25 MG TAB PO SCH (08:51)
[2018-12-01] MEDS ORDERED: Famotidine 20 MG TAB PO SCH (09:00)
[2018-12-01] MEDS: Ciprofloxacin Lactate/D5W 200 MG in Premix Bag 1 BAG IVPB SCH (13:10)
[2018-12-01] MEDS ORDERED: Lorazepam 1 MG TAB PO PRN (14:20)
[2018-12-01] MEDS: Lidocaine 5% Patch TD SCH (15:02)
--- NOTE | 2018-12-01 19:04 | PRG ---
DATE OF SERVICE: 12/01/2018 SUBJECTIVE: Ms. Romero is presently out of floor. She is having MRI of her lower back for chronic low back pain. OBJECTIVE: VITAL SIGNS: Temperature is 98, pulse 95, blood pressure 120/70. GENERAL: The patient is not examined. She is not on the floor. Presently, in MRI. LABORATORY DATA: Today, none. 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 Random colon biopsies were unremarkable with no signs of microscopic colitis or the changes to explain her intermittent diarrhea. RECOMMENDATIONS: 1. Daily fiber supplementation. Consider repeat colonoscopy in 5 years based on her overall health. At that time, she will be 78. 2. We will defer to primary service for management of chronic back pain issues. We will follow from a distance. Job ID: [id number]
--- NOTE | 2018-12-01 21:08 | MRI ---
MRI LUMBAR SPINE WITHOUT CONTRAST: 12/01/18 HISTORY: Intractable back pain. FINDINGS: The exam is compromised due to motion artifact, particularly during the axial images. There is mild compression of the L1 vertebral body with edema on the STIR images and small amount of fluid in the superior end plate. The vertebral body heights and marrow signal is maintained at T12, L2, L3, L4, L5 levels and sacrum. No definite significant focal disc herniation is seen. No significant central canal stenosis and neur al foraminal stenosis identified. The conus medullaris ends at L2 level. IMPRESSION: Acute/subacute mild compression fracture of L1 vertebral body. POS: RAMAN
[2018-12-01] MEDS: metroNIDAZOLE 250 MG TAB PO SCH (21:09)
--- NOTE | 2018-12-01 22:15 | PDOC.PN ---
- Subjective Encounter Start Date: 12/01/18 Encounter Start Time: 15:00 Patient seen and examined for Colitis. Intractable back pain - Unable to get out of bed or sit on side of bed to eat. Also refused PT/OT. No focal deficits. No bladder/bowel incontinence. No new complaints. No overnight events - Objective Resuscitation Status - Order Detail: 11/27/18 11:31 Resuscitation Status Routine Resuscitation Status: FULL: Full Resuscitation MAR Reviewed: Yes Vital Signs & Weight: Vital Signs (12 hours) Temp Pulse Resp BP BP Pulse Ox 12/01/18 20:08 95 144/69 H 12/01/18 16:14 98.4 F 95 16 120/70 95 12/01/18 14:55 115/70 Weight Weight 216 lb 14.4 oz I&O: 11/30/18 12/01/18 12/02/18 06:59 06:59 06:59 Intake Total 640 1150 880 Output Total 2 Balance 638 1150 880 Result Diagrams: 11/30/18 06:03 11/30/18 06:03 Additional Labs: Accuchecks 12/01/18 04:25 POC Glucose 105 Radiology Reviewed by me: Yes (Back XR - reviewed) Phys Exam - Physical Examination Pt in distress due to intractable back pain Neck: no JVD Respiratory: no wheezing, no rales, no rhonchi, clear to auscultation bilateral Cardiovascular: RRR, no rub no heaves/pulsations Gastrointestinal: soft, positive bowel sounds mild gen tenderness, no guarding/rigidity Musculoskeletal: no edema Neurological: non-focal, normal sensation, moves all 4 limbs Psychiatric: normal affect, A&O x 3 Skin: no rash Dx/Plan - Plan DVT proph w/SCDs 1. Diarrhea/Abd pain/Colitis - improving, s/p Colonoscopy 2. Intractable low back pain - worsening 3. Hypokalemia 4. Obesity BMI 32.9 5. DM2 6. HTN PLAN: Accepted by Inpt Rehab Will get MRI LS spine prior to dc later today Add Fentany patch Cont Tramadol PRN Cont other meds as below Review of Systems - Review of Systems Respiratory: negative: Cough, Dry, Shortness of Breath, Hemoptysis, SOB with Excertion, Pleuritic Pain, Sputum, Wheezing Cardiovascular: negative: chest pain, palpitations, orthopnea, paroxysmal nocturnal dyspnea, edema, light headedness, other - Medications/Allergies Allergies/Adverse Reactions: Allergies Allergy/AdvReac Type Severity Reaction Status Date / Time codeine Allergy TACHYCARDIA Verified 11/27/18 12:03 Medications: Current Medications Acetaminophen (Tylenol) 650 mg PO Q4H PRN PRN Reason: Headache/Fever/Mild Pain (1-3) Last Admin: 11/28/18 18:56 Dose: 650 mg Atenolol (Tenormin) 25 mg PO BID [facility] Last Admin: 12/01/18 20:08 Dose: 25 mg Atorvastatin Calcium (Lipitor) 10 mg PO DAILY [facility] Last Admin: 12/01/18 08:48 Dose: 10 mg Ciprofloxacin (Cipro) 250 mg PO BID@0600,1999 [facility] Cyclobenzaprine HCl (Flexeril) 10 mg PO TIDPRN PRN PRN Reason: Muscle Spasm Last Admin: 12/01/18 06:01 Dose: 10 mg Dextrose/Water (Dextrose 50%) 25 gm SLOW IVP PRN PRN PRN Reason: Hypoglycemia Famotidine (Pepcid) 20 mg PO BID [facility] Last Admin: 12/01/18 20:08 Dose: 20 mg Fentanyl (Sublimaze) 25 mcg SLOW IVP Q2H PRN PRN Reason: Mild-Moderate Pain (1-5) Last Admin: 11/30/18 15:27 Dose: 25 mcg Fentanyl (Duragesic) 12 mcg TD Q3D [facility] Last Admin: 12/01/18 15:41 Dose: 12 mcg Gabapentin (Neurontin) 600 mg PO BID [facility] Last Admin: 12/01/18 20:08 Dose: 600 mg Glucagon (Glucagon) 1 mg IM PRN PRN PRN Reason: Hypoglycemia Hydralazine HCl (Apresoline) 25 mg PO TID [facility] Last Admin: 12/01/18 20:08 Dose: 25 mg Dextrose/Water (D5w) 1,000 mls @ 0 mls/hr IV .Q0M PRN PRN Reason: Hypoglycemia Insulin Human Lispro (Humalog) 0 units SC .MILD SLIDING SCALE PRN PRN Reason: Mild Correctional Scale Ketorolac Tromethamine (Toradol) 15 mg IVP Q8H PRN PRN Reason: Pain Stop: 12/03/18 10:13 Last Admin: 11/30/18 04:46 Dose: 15 mg Lidocaine (Lidoderm 5% Patch) 1 patch TD Q24HR [facility] Last Admin: 12/01/18 15:02 Dose: Not Given Lorazepam (Ativan) 1 mg PO DAILY PRN PRN Reason: Claustrophobia Last Admin: 12/01/18 17:29 Dose: 1 mg Losartan Potassium (Cozaar) 25 mg PO DAILY [facility] Last Admin: 12/01/18 08:51 Dose: Not Given Metronidazole (Flagyl) 250 mg PO TID [facility] Last Admin: 12/01/18 21:09 Dose: Not Given Miscellaneous Medication (Lidocaine Patch Removal) 1 each TOP 0200 [facility] Last Admin: 12/01/18 02:21 Dose: Not Given Oxybutynin Chloride (Ditropan) 5 mg PO DAILY [facility] Last Admin: 12/01/18 08:48 Dose: 5 mg Sertraline HCl (Zoloft) 100 mg PO DAILY [facility] Last Admin: 12/01/18 08:48 Dose: 100 mg Tramadol HCl (Ultram) 50 mg PO Q4H PRN PRN Reason: Moderate Pain (4-6) Last Admin: 12/01/18 20:07 Dose: 50 mg
[2018-12-02] MEDS: Lidocaine Patch Removal 1 EACH TOP SCH (02:21)
[2018-12-02] MEDS: traMADol HCl 50 MG TAB PO PRN (05:49)
[2018-12-02] MEDS: Cipro 250 MG TAB PO SCH ×2 (06:25→20:31)
[2018-12-02] MEDS: Famotidine 20 MG TAB PO SCH ×2 (07:47→20:32)
[2018-12-02] MEDS: Oxybutynin 5 MG TAB PO SCH (07:47)
[2018-12-02] MEDS: Atorvastatin Calcium 10 MG TAB PO SCH (07:47)
[2018-12-02] MEDS: hydrALAZINE 25 MG TAB PO SCH ×2 (07:47→15:16)
[2018-12-02] MEDS: Gabapentin 300 MG CAP PO SCH ×2 (07:47→20:31)
[2018-12-02] MEDS: Atenolol 25 MG TAB PO SCH ×2 (07:47→20:32)
[2018-12-02] MEDS: Losartan 25 MG TAB PO SCH (07:48)
[2018-12-02] MEDS: Ketorolac Tromethamine 30 MG/ML VIAL IVP PRN ×2 (08:46→16:56)
[2018-12-02] MEDS: metroNIDAZOLE 250 MG TAB PO SCH ×3 (08:47→20:31)
[2018-12-02] MEDS ORDERED: Ondansetron PF 4 MG/2 ML Vial IVP PRN (09:18)
--- NOTE | 2018-12-02 12:44 | DIS ---
DATE OF ADMISSION: 11/27/2018 DATE OF DISCHARGE: 12/02/2018 PRIMARY CARE PHYSICIAN: Roosevelt Warren MD. DISCHARGE DISPOSITION: Rehab. PRIMARY DISCHARGE DIAGNOSES: 1. Acute exacerbation of chronic low back pain. 2. Compression fracture of L1. 3. Chronic diarrhea. 4. Hypokalemia. SECONDARY DISCHARGE DIAGNOSES: 1. Osteoporosis. 2. Obesity. 3. Hypertension. 4. Gastroesophageal reflux disease. 5. Dyslipidemia. 6. Diabetes, type 2. 7. Chronic obstructive pulmonary disease. 8. Chronic respiratory failure with hypoxia, on home oxygen. 9. Anxiety and depression. PRIMARY PROCEDURE/OPERATION: Colonoscopy was performed by Dr. Conrad. RADIOLOGICAL INVESTIGATION: Abdomen and pelvis CT scan and lumbar spine MRI. SIGNIFICANT LABORATORY DATA: Hemoglobin 12.2. Creatinine 0.76. Urinalysis unremarkable. Stool for infection workup negative. Urine culture negative. DISCHARGE MEDICATIONS: 1. Atenolol 25 mg b.i.d. 2. Lipitor 10 mg p.o. daily. 3. Celebrex 200 mg p.o. b.i.d. p.r.n. 4. Librax one capsule b.i.d. 5. Lasix 20 mg daily. 6. Gabapentin 600 mg p.o. b.i.d. 7. Amaryl 2 mg p.o. daily. 8. Boniva 150 mg p.o. as directed. 9. Losartan 25 mg p.o. daily. 10. Omeprazole 20 mg p.o. daily. 11. Oxybutynin 5 mg p.o. daily. 12. Zoloft 100 mg p.o. daily. 13. Flagyl 250 mg p.o. t.i.d. for 3 days. 14. Cipro 250 mg p.o. b.i.d. for 2 days. 15. Flexeril 10 mg t.i.d. p.r.n. 16. Tramadol 50 mg q.4 hourly p.r.n. CONTRAINDICATION: None. CODE STATUS: Full code. INPATIENT SIGNAL TIMER: Neurosurgeon was consulted for compression fracture. GI Team was consulted for diarrhea. TEST RESULTS PENDING ON DISCHARGE: Biopsy report from polyp. DISCHARGE PLAN: Posthospital, the patient is discharged to rehab. Subsequently, the patient will follow with primary care physician. HOSPITAL COURSE: A 73-year-old female, who was admitted by Dr. Alma Ace. Please see her H and P for further details. The patient was having chronic diarrhea, but recently gotten worse and that is why she was admitted in the hospital. Gastroenterology was consulted and they did colonoscopy and biopsy was obtained. Now, biopsy report is available and is showing hyperplastic polyp, tubulovillous adenoma, and hyperplastic polyp, but there is no evidence of any significant microscopic colitis. The patient was complaining of acute on chronic back pain and that is why we did lumbar spine MRI, which showed L1 compression fracture. Before discharge, we are consulting neurosurgeon for their opinion. At this point, the patient's pain is well controlled. Her diarrhea is also under control. She is given a trial of oral antibiotic therapy for few more days. She will follow up with primary care physician and pain specialist after discharge. At this point, [facility] I have seen and examined the patient at the bedside today. The plan of care discussed with the patient. Paperwork for discharge done and discharge medication reconciliation done. The patient is medically stable for discharge to go to rehab. Job ID: [id number]
--- NOTE | 2018-12-02 13:24 | PDOC.PN ---
- Subjective Encounter Start Date: 12/02/18 Encounter Start Time: 10:30 -: old records requested/rev Patient seen and examined. No new complaints. No overnight events - Objective Resuscitation Status - Order Detail: 11/27/18 11:31 Resuscitation Status Routine Resuscitation Status: FULL: Full Resuscitation MAR Reviewed: Yes Vital Signs & Weight: Vital Signs (12 hours) Temp Pulse Resp BP BP BP Pulse Ox 12/02/18 10:37 102/64 12/02/18 07:47 99 12/02/18 07:45 98.2 F 99 16 115/75 115/75 95 Weight Weight 216 lb 14.393 oz I&O: 12/01/18 12/02/18 12/03/18 06:59 06:59 06:59 Intake Total 1150 1280 Balance 1150 1280 Result Diagrams: 11/30/18 06:03 11/30/18 06:03 Additional Labs: Accuchecks 12/02/18 12/02/18 12/01/18 11:19 04:52 20:03 POC Glucose 134 H 102 130 H 12/01/18 12/01/18 17:10 11:50 POC Glucose 97 110 Phys Exam - Physical Examination Constitutional: NAD HEENT: PERRLA, moist MMs, sclera anicteric Neck: no JVD, supple Respiratory: no wheezing, no rales, no rhonchi Cardiovascular: RRR, no significant murmur, no rub Gastrointestinal: soft, non-tender, no distention, positive bowel sounds Musculoskeletal: no edema, pulses present Neurological: non-focal, normal sensation, moves all 4 limbs Psychiatric: normal affect, A&O x 3 Skin: no rash, normal turgor Dx/Plan (1) Acute exacerbation of chronic low back pain Code(s): M54.5 - LOW BACK PAIN; G89.29 - OTHER CHRONIC PAIN Status: Acute (2) Chronic diarrhea Code(s): K52.9 - NONINFECTIVE GASTROENTERITIS AND COLITIS, UNSPECIFIED Status : Acute Comment: for colonoscopy today (3) Compression fracture of L1 vertebra Code(s): S32.010A - WEDGE COMPRESSION FRACTURE OF FIRST LUMBAR VERTEBRA, INIT Status: Acute (4) Hypokalemia Code(s): E87.6 - HYPOKALEMIA Status: Acute Comment: replace potassium (5) Anxiety and depression Code(s): F41.9 - ANXIETY DISORDER, UNSPECIFIED; F32.9 - MAJOR DEPRESSIVE DISORDER, SINGLE EPISODE, UNSPECIFIED Status: Chronic Comment: mild, stable (6) COPD (chronic obstructive pulmonary disease) Status: Chronic Comment: stable (7) Chronic respiratory failure with hypoxia, on home O2 therapy Code(s): J96.11 - CHRONIC RESPIRATORY FAILURE WITH HYPOXIA; Z99.81 - DEPENDENCE ON SUPPLEMENTAL OXYGEN Status: Chronic (8) Diabetes type 2, controlled Code(s): E11.9 - TYPE 2 DIABETES MELLITUS WITHOUT COMPLICATIONS Status: Chronic Comment: controlled (9) Dyslipidemia Code(s): E78.5 - HYPERLIPIDEMIA, UNSPECIFIED Status: Chronic Comment: stable (10) GERD (gastroesophageal reflux disease) Code(s): K21.9 - GASTRO-ESOPHAGEAL REFLUX DISEASE WITHOUT ESOPHAGITIS Status: Chronic Comment: stable (11) Hypertension Code(s): I10 - ESSENTIAL (PRIMARY) HYPERTENSION Status: Chronic Comment: start scheduled hydralazine (12) Obesity (BMI 30.0-34.9) Code(s): E66.9 - OBESITY, UNSPECIFIED Status: Chronic (13) Osteoporosis Code(s): M81.0 - AGE-RELATED OSTEOPOROSIS W/O CURRENT PATHOLOGICAL FRACTURE Status: Chronic - Plan cont current plan of care, psychiatric social worker * medication reviewed as below * symptomatic treatment * see discharge alex. Review of Systems - Review of Systems ENT: negative: Ear Pain, Ear Discharge, Nose Pain, Nose Discharge, Nose Congestion, Mouth Pain, Mouth Swelling, Throat Pain, Throat Swelling, Other Respiratory: negative: Cough, Dry, Shortness of Breath, Hemoptysis, SOB with Excertion, Pleuritic Pain, Sputum, Wheezing Cardiovascular: negative: chest pain, palpitations, orthopnea, paroxysmal nocturnal dyspnea, edema, light headedness, other Gastrointestinal: negative: Nausea, Vomiting, Abdominal Pain, Diarrhea, Constipation, Melena, Hematochezia, Other Genitourinary: negative: Dysuria, Frequency, Incontinence, Hematuria, Retention , Other - Medications/Allergies Allergies/Adverse Reactions: Allergies Allergy/AdvReac Type Severity Reaction Status Date / Time codeine Allergy TACHYCARDIA Verified 11/27/18 12:03 Medications: Current Medications Acetaminophen (Tylenol) 650 mg PO Q4H PRN PRN Reason: Headache/Fever/Mild Pain (1-3) Last Admin: 11/28/18 18:56 Dose: 650 mg Atenolol (Tenormin) 25 mg PO BID [facility] Last Admin: 12/02/18 07:47 Dose: 25 mg Atorvastatin Calcium (Lipitor) 10 mg PO DAILY [facility] Last Admin: 12/02/18 07:47 Dose: 10 mg Ciprofloxacin (Cipro) 250 mg PO BID@0600,2000 [facility] Last Admin: 12/02/18 06:25 Dose: 250 mg Cyclobenzaprine HCl (Flexeril) 10 mg PO TIDPRN PRN PRN Reason: Muscle Spasm Last Admin: 12/01/18 06:01 Dose: 10 mg Dextrose/Water (Dextrose 50%) 25 gm SLOW IVP PRN PRN PRN Reason: Hypoglycemia Famotidine (Pepcid) 20 mg PO BID [facility] Last Admin: 12/02/18 07:47 Dose: 20 mg Fentanyl (Sublimaze) 25 mcg SLOW IVP Q2H PRN PRN Reason: Mild-Moderate Pain (1-5) Last Admin: 11/30/18 15:27 Dose: 25 mcg Fentanyl (Duragesic) 12 mcg TD Q3D [facility] Last Admin: 12/01/18 15:41 Dose: 12 mcg Gabapentin (Neurontin) 600 mg PO BID [facility] Last Admin: 12/02/18 07:47 Dose: 600 mg Glucagon (Glucagon) 1 mg IM PRN PRN PRN Reason: Hypoglycemia Hydralazine HCl (Apresoline) 25 mg PO TID [facility] Last Admin: 12/02/18 07:47 Dose: Not Given Dextrose/Water (D5w) 1,000 mls @ 0 mls/hr IV .Q0M PRN PRN Reason: Hypoglycemia Insulin Human Lispro (Humalog) 0 units SC .MILD SLIDING SCALE PRN PRN Reason: Mild Correctional Scale Ketorolac Tromethamine (Toradol) 15 mg IVP Q8H PRN PRN Reason: Pain Stop: 12/03/18 10:13 Last Admin: 12/02/18 08:46 Dose: 15 mg Lidocaine (Lidoderm 5% Patch) 1 patch TD Q24HR [facility] Last Admin: 12/01/18 15:02 Dose: Not Given Lorazepam (Ativan) 1 mg PO DAILY PRN PRN Reason: Claustrophobia Last Admin: 12/01/18 17:29 Dose: 1 mg Losartan Potassium (Cozaar) 25 mg PO DAILY [facility] Last Admin: 12/02/18 07:48 Dose: Not Given Metronidazole (Flagyl) 250 mg PO TID [facility] Last Admin: 12/02/18 08:47 Dose: 250 mg Miscellaneous Medication (Lidocaine Patch Removal) 1 each TOP 0200 [facility] Last Admin: 12/02/18 02:21 Dose: Not Given Ondansetron HCl (Zofran) 4 mg IVP Q6H PRN PRN Reason: Nausea/Vomiting Last Admin: 12/02/18 09:33 Dose: 4 mg Oxybutynin Chloride (Ditropan) 5 mg PO DAILY [facility] Last Admin: 12/02/18 07:47 Dose: 5 mg Sertraline HCl (Zoloft) 100 mg PO DAILY [facility] Last Admin: 12/02/18 07:47 Dose: 100 mg Sodium Chloride (Flush - Normal Saline) 10 ml IVF Q12HR [facility] Sodium Chloride (Flush - Normal Saline) 10 ml IVF PRN PRN PRN Reason: Saline Flush Tramadol HCl (Ultram) 50 mg PO Q4H PRN PRN Reason: Moderate Pain (4-6) Last Admin: 12/02/18 05:49 Dose: 50 mg
[2018-12-02] MEDS: Lidocaine 5% Patch TD SCH (13:34)
--- NOTE | 2018-12-02 16:32 | PRG ---
DATE OF SERVICE: 12/02/2018 SUBJECTIVE: Ms. Romero has had no further diarrhea. She states her back is feeling a little bit better. Apparently, she is waiting for evaluation from Neurosurgery. OBJECTIVE: VITAL SIGNS: Temperature 97, pulse 92, blood pressure 102/64. ABDOMEN: Soft and nontender. LUNGS: Clear. HEART: Regular rate and rhythm. LABORATORY DATA: None except for fingerstick blood glucose 68. ASSESSMENT: Intermittent diarrhea alternating with constipation. RECOMMENDATIONS: 1. Fiber daily. Metamucil or Citrucel with 8 ounces of water. 2. No signs of microscopic colitis. 3. Tubular adenoma of the colon. Consider repeat colonoscopy in 3 years depending on overall health at that time. 4. Follow up in the office as needed. We will sign off. I could be of any further assistance, please do not hesitate to contact me. Job ID: [id number]
[2018-12-02 19:31] VITALS: TEMP 98.9
[2018-12-02 20:34] VITALS: BP 117/64
--- NOTE | 2018-12-03 00:43 | CON ---
DATE OF CONSULTATION: HISTORY OF PRESENT ILLNESS: The patient is a 73-year-old female with a past medical history of diabetes, hypertension, pulmonary fibrosis, and GERD, who presented to the emergency department for progressive nausea and diarrhea over the past few months. The patient was also complaining of chronic low back pain and had plan to get outpatient MRI of the lumbar spine as prescribed by her PCP. This was ultimately done on inpatient basis and she was found to have an L1 compression fracture. Neurosurgery was consulted for further evaluation of her symptoms. I visited the patient at the bedside. She is complaining of low back pain with radiation into the left hip. She has no classic radicular features, numbness, tingling, or weakness. She denies any new bowel or bladder issues other than the worsening diarrhea. PAST MEDICAL HISTORY: Diabetes, hypertension, GERD, diastolic heart failure, pulmonary fibrosis, history of bladder cancer. SURGICAL HISTORY: Prior cataract surgery, bladder surgery, appendectomy, cholecystectomy, and tubal ligation. SOCIAL HISTORY: Former smoker. She does not drink or use any drugs. She lives at home with her family. FAMILY HISTORY: Noncontributory. ALLERGIES: SHE IS ALLERGIC TO CODEINE. REVIEW OF SYSTEMS: Per HPI. PHYSICAL EXAMINATION: VITAL SIGNS: Pulse is 95, respiration rate is 16. She is 94% on 2 L of nasal cannula. BP is 120/73. CONSTITUTIONAL: Awake, alert, and in no acute distress. HEENT: Head is normocephalic and atraumatic. Eyes, PERRLA. Extraocular movements intact. ENT; oral mucosa is pink and moist. She has normal voice. NECK: Nontender to palpation. Free active range of motion. CARDIAC: Regular rhythm. PULMONARY: Symmetric chest expansion. No evidence of dyspnea. MUSCULOSKELETAL: Free active range of motion of all extremities. No focal motor weakness. No reflex asymmetry. BACK: Tender to palpation over the upper lumbar spine. Pain with range of motion. NEUROLOGIC: A and O x4. No focal neurologic deficits are appreciated. ASSESSMENT: L1 compression fracture. PLAN: We will plan to treat the patient's L1 compression fracture in a TLSO brace. The patient should wear the brace for all out of bed activities. The brace can be removed in bed and shower. She is transitioning from here to inpatient rehabilitation and we will plan to follow up with the patient on outpatient basis in approximately 4 weeks with a repeat set of L-spine x-rays at that time and I will call to arrange. Job ID: [id number]
--- NOTE | 2018-12-05 09:43 | EKG ---
Test Reason : Blood Pressure : / mmHG Vent. Rate : 099 BPM Atrial Rate : 099 BPM P-R Int : 178 ms QRS Dur : 086 ms QT Int : 386 ms P-R-T Axes : 049 -05 060 degrees QTc Int : 495 ms Normal sinus rhythm Septal infarct , age undetermined Inferior infarct , age undetermined Abnormal ECG Biatrial enlargement Confirmed by CHUCHO BOBO, SUBHASH Brambila ([id number]), editor school photograph JOSE CALLAWAY ([id number]) on 12/05/2018 9:42:30 AM Referred By: Confirmed By:SUBHASH RANKIN MD
== END 2018-12-02 20:50 ==
LOC: ERS 07:37 → ERHOLD 09:28 → T4-B 11:52
PROVIDERS: ADMIT Internal Medicine; ATTEND Internal Medicine
PROC: 0DBP8ZX Excision of Rectum, Via Natural or Artificial Opening Endoscopic, Diagnostic (ICD-10-PCS; principal; 2018-11-29)
PROC: 0DBL8ZX Excision of Transverse Colon, Via Natural or Artificial Opening Endoscopic, Diagnostic (ICD-10-PCS; 2018-11-29)
PROC: 0DBN8ZX Excision of Sigmoid Colon, Via Natural or Artificial Opening Endoscopic, Diagnostic (ICD-10-PCS; 2018-11-29)
PROC: 0DBK8ZX Excision of Ascending Colon, Via Natural or Artificial Opening Endoscopic, Diagnostic (ICD-10-PCS; 2018-11-29)
PROC: 0DBM8ZX Excision of Descending Colon, Via Natural or Artificial Opening Endoscopic, Diagnostic (ICD-10-PCS; 2018-11-29)
DX: K52.9 Noninfective gastroenteritis and colitis, unspecified (principal); K63.5 Polyp of colon; K62.1 Rectal polyp; D12.5 Benign neoplasm of sigmoid colon; K64.8 Other hemorrhoids; J84.112 Idiopathic pulmonary fibrosis; I11.0 Hypertensive heart disease with heart failure; I50.30 Unspecified diastolic (congestive) heart failure; K21.9 Gastro-esophageal reflux disease without esophagitis; E87.6 Hypokalemia; G89.29 Other chronic pain; M54.5 Low back pain; E11.40 Type 2 diabetes mellitus with diabetic neuropathy, unspecified; I48.91 Unspecified atrial fibrillation; M48.56XA Collapsed vertebra, not elsewhere classified, lumbar region, initial encounter for fracture; F41.8 Other specified anxiety disorders; J96.11 Chronic respiratory failure with hypoxia; K59.00 Constipation, unspecified; E66.9 Obesity, unspecified; Z68.32 Body mass index [BMI] 32.0-32.9, adult; Z87.891 Personal history of nicotine dependence; Z99.81 Dependence on supplemental oxygen; Z79.83 Long term (current) use of bisphosphonates; Z79.84 Long term (current) use of oral hypoglycemic drugs; Z79.899 Other long term (current) drug therapy; Z88.5 Allergy status to narcotic agent; Z98.890 Other specified postprocedural states
CPT/HCPCS: 45380; 45385; 51701; 72148; 74177; 80048 ×2; 80053; 82962 ×6; 83605; 83630; 83690; 83735; 84100; 85025 ×3; 87045; 87046; 87086; 87449; 87899 ×2; 88305; 90670; 93005; 94760; 96365; 96366 ×5; 96367; 96375 ×2; 96376 ×5; 97139 ×3; 97530 ×2; 99291; G0009; G0378 ×3; 36415; 36416; 81003; 81015; 90471; J0153; J0744; J1885; J2001; J2060; J2185; J2405; J2704; J3010; J3490; S0028

== ENCOUNTER 2018-12-19 05:52 | Observation (INO) | payer MEDICARE, OTHER ==
[2018-12-19 07:16] LABS: #Eosinphils 0.5 thou/uL (0.0-0.7); #Lymphocytes 1.3 thou/uL (1.20-3.40); #Monocytes 0.5 thou/uL (0.11-0.59); #Neutrophils 3.1 thou/uL (1.40-6.50); %Basophils 0.4 % (0.0-1.0); %Eosinophils 8.8 % (0.0-10.0); %Lymphocytes 24.1 % (21.0-51.0); %Monocytes 8.6 % (0.0-10.0); %Neutrophils 58.1 % (42.0-75.0); Hemoglobin 11.7 g/dL (12.0-16.0); Mean Corpuscular HGB CONC 30.5 g/dL (32.0-36.0); Mean Corpuscular Hemoglobin 26.6 pg (27.0-31.0); Mean Corpuscular Volume 87.2 fL (78.0-98.0); Mean Platelet Volume 9.5 fL (7.4-10.4); Platelet Count 133 thou/uL (130-400); RBC Distribution Width 16.8 % (11.5-14.5); White Blood Cell (WBC) Count 5.3 thou/uL (4.8-10.8)
[2018-12-19 07:31] LABS: ALT (SGPT) 18 U/L (8-55); AST (SGOT) 58 U/L (5-34); Albumin 3.5 g/dL (3.4-4.8); Alkaline Phosphatase 140 U/L (40-150); Anion Gap 13 mmol/L (10-20); BUN (Urea Nitrogen) 14 mg/dL (9.8-20.1); Bilirubin, Total 0.4 mg/dL (0.2-1.2); CK (CPK) 29 U/L (29-168); Calc. Creatinine Clearance 0 mL/min (70-130); Carbon Dioxide 25 mmol/L (23-31); Chloride 105 mmol/L (98-107); Estimated GFR-MDRD 73; Globulin 3.2 g/dL (2.4-3.5); Glucose 135 mg/dL (83-110); Lipase 23 U/L (8-78); Potassium 4.1 mmol/L (3.5-5.1); Protein, Total 6.7 g/dL (6.0-8.3); Sodium 139 mmol/L (136-145)
--- NOTE | 2018-12-19 09:23 | PDOC.FPRHP ---
- History of Present Illness Chief Complaint: Chest Pain History of Present Illness: Ms Romero is a 73yo female with PMH of CHF, Idiopathic pulmonary fibrosis, Atrial Fibrillation, HTN, HLD, hx of bladder cancer. She presents to the ED with c/o sudden onset of chest pain and palpitations that started last night during dinner. Located substernal, no radiation, no diaphoresis or nausea. States that the pain woke her up from sleep in the middle of the night and describes the pain as a rapidly beating heart/anxious feeling. States she has had this pain several times in her life. When EMS arrived, she was tachycardic and hypertensive. She was taking atenolol but it was discontinued three days ago. States that she has a hx of rapid heart beat that was well controlled with atenolol. She has been at rehab facility due to a recent spine fracture. At baseline, Pt is on supplemental O2 at nights and prn during the day. She sees a psychologist counseling at [facility] but she cannot remember his name. In the ED, she received 500 mL of NS. Initial troponin was negative, BNP was 138, and CT chest that showed no evidence of PE. PCP: Dr Hollis ED Course: 500ml NS - Allergies/Adverse Reactions Allergies Allergy/AdvReac Type Severity Reaction Status Date / Time codeine Allergy TACHYCARDIA Verified 11/27/18 12:03 - Home Medications Medication Instructions Recorded Confirmed Type Atenolol [Tenormin] 25 mg PO BID 10/09/18 12/19/18 History Celecoxib [Celebrex] 200 mg PO BID 10/09/18 12/19/18 History Gabapentin 600 mg PO BID 10/09/18 12/19/18 History Ibandronate Sodium [Boniva] 150 mg PO ASDIR 10/09/18 12/19/18 History Losartan [Cozaar] 25 mg PO DAILY 10/09/18 12/19/18 History Oxybutynin [Ditropan] 5 mg PO DAILY 10/09/18 12/19/18 History Sertraline HCl [Zoloft] 100 mg PO DAILY 10/09/18 12/19/18 History Atorvastatin Calcium [Lipitor] 10 mg PO HS 12/19/18 12/19/18 History HYDROcodone/Acetaminophen [Marcus 1 tab PO Q4H PRN 12/19/18 12/19/18 History 10-325 Tablet] Nystatin [Nystatin Powder] 1 g TOP BID 12/19/18 12/19/18 History Ondansetron [Zofran ODT] 4 mg PO Q4H PRN 12/19/18 12/19/18 History Pantoprazole [Protonix] 40 mg PO QAM 12/19/18 12/19/18 History Polyethylene Glycol 3350 [Miralax] 17 g PO QAM 12/19/18 12/19/18 History - History PMHx: CHF, Afib, DMII, HLD, HTN, bladder cancer, OA, Idiopathic pulmonary fibrosis PSHx: B/L cataracts x2, bladder CA removal, cardiac cath x5, appendectomy, cholecystectomy, tubal ligation. FHx: Noncontributory Social: Denies alcohol, tobacco and drug use. - Review of Systems General: denies: fever/chills, weight/appetite/sleep changes Eyes: denies: eye pain, vision changes ENT: denies: nasal congestion, rhinorrhea Respiratory: reports: shortness of breath, exercise intolerance. denies: cough , congestion Cardiovascular: reports: chest pain, palpitation. denies: edema Gastrointestinal: denies: nausea, vomiting, diarrhea, constipation, abdominal pain Genitourinary: denies: dysuria, polyuria Skin: denies: rashes, lesions Musculoskeletal: reports: pain, tenderness Neurological: denies: numbness, syncope, seizure Psychological: denies: anxiety, depression - Vital signs BP: 121/79 HR: 92 RR: 23 Tmax: 97.9 Pox: 94% on RA Wt: 125kg - Physical Exam Constitutional: NAD, awake, alert and oriented, well developed HEENT: normocephalic and atraumatic, conjunctiva clear, no scleral icterus, grossly normal hearing, MMM, oropharynx clear, other (wears dentures) Neck: supple, trachea midline Heart: RRR, normal S1/S2 -Heart: 3/6 systolic murmur radiates to carotids, loudest on left carotid Lungs: CTAB, no respiratory distress, good air movement Abdomen: soft, non-tender, bowel sounds present Musculoskeletal: normal structure, normal tone, ROM grossly normal Neurological: no focal deficit Skin: no rash/lesions, good turgor Heme/Lymphatic: no unusual bruising or bleeding Psychiatric: normal mood and affect, good judgment and insight, intact recent and remote memory FMR H&P: Results - Labs Result Diagrams: 12/19/18 07:00 12/19/18 07:00 Lab results: WBC 5.3 thou/uL (4.8-10.8) 12/19/18 07:00 Hgb 11.7 g/dL (12.0-16.0) L 12/19/18 07:00 Hct 38.4 % (36.0-47.0) 12/19/18 07:00 MCV 87.2 fL (78.0-98.0) 12/19/18 07:00 Plt Count 133 thou/uL (130-400) 12/19/18 07:00 Neutrophils % 58.1 % (42.0-75.0) 12/19/18 07:00 Sodium 139 mmol/L (136-145) 12/19/18 07:00 Potassium 4.1 mmol/L (3.5-5.1) 12/19/18 07:00 Chloride 105 mmol/L (98-107) 12/19/18 07:00 Carbon Dioxide 25 mmol/L (23-31) 12/19/18 07:00 BUN 14 mg/dL (9.8-20.1) 12/19/18 07:00 Creatinine 0.77 mg/dL (0.6-1.1) 12/19/18 07:00 Glucose 135 mg/dL (83-110) H 12/19/18 07:00 Lactic Acid 0.9 mmol/L (0.5-2.2) 12/19/18 07:00 Calcium 9.0 mg/dL (7.8-10.44) 12/19/18 07:00 Total Bilirubin 0.4 mg/dL (0.2-1.2) 12/19/18 07:00 AST 58 U/L (5-34) H 12/19/18 07:00 ALT 18 U/L (8-55) 12/19/18 07:00 Alkaline Phosphatase 140 U/L (40-150) 12/19/18 07:00 Creatine Kinase 29 U/L (29-168) 12/19/18 07:00 B-Natriuretic Peptide 138.6 pg/mL (0-100) H 12/19/18 07:00 Serum Total Protein 6.7 g/dL (6.0-8.3) 12/19/18 07:00 Albumin 3.5 g/dL (3.4-4.8) 12/19/18 07:00 Lipase 23 U/L (8-78) 12/19/18 07:00 - EKG Interpretation EK lead EKG shows, sinus tachycardia, Rate (beats per minute): 108, with no ectopics, Interpretation:, Cannot rule out anterior infarct, age undetermined, Other findings include:, left ventricular hypertrophy, Clinical impression:, abnormal ECG. - Radiology Interpretation CT scan - chest Status: report reviewed by me Additional comment: Splenomegaly present. No evidence of PE Chest x-ray Status: report reviewed by me Additional comment: Evidence of vascular and interstitial congestion, not significantly changed from the recent exam FMR H&P: A/P - Problem List (1) Acute exacerbation of chronic low back pain Current Visit: No Status: Acute Code(s): M54.5 - LOW BACK PAIN; G89.29 - OTHER CHRONIC PAIN (2) Chronic diarrhea Current Visit: No Status: Acute Code(s): K52.9 - NONINFECTIVE GASTROENTERITIS AND COLITIS, UNSPECIFIED Comment: for colonoscopy today (3) Compression fracture of L1 vertebra Current Visit: No Status: Acute Code(s): S32.010A - WEDGE COMPRESSION FRACTURE OF FIRST LUMBAR VERTEBRA, INIT (4) Anxiety and depression Current Visit: No Status: Chronic Code(s): F41.9 - ANXIETY DISORDER, UNSPECIFIED; F32.9 - MAJOR DEPRESSIVE DISORDER, SINGLE EPISODE, UNSPECIFIED Comment: mild, stable (5) COPD (chronic obstructive pulmonary disease) Current Visit: No Status: Chronic Comment: stable (6) Diabetes type 2, controlled Current Visit: No Status: Chronic Code(s): E11.9 - TYPE 2 DIABETES MELLITUS WITHOUT COMPLICATIONS Comment: controlled (7) Dyslipidemia Current Visit: No Status: Chronic Code(s): E78.5 - HYPERLIPIDEMIA, UNSPECIFIED Comment: stable (8) GERD (gastroesophageal reflux disease) Current Visit: No Status: Chronic Code(s): K21.9 - GASTRO-ESOPHAGEAL REFLUX DISEASE WITHOUT ESOPHAGITIS Comment: stable (9) Hypertension Current Visit: No Status: Chronic Code(s): I10 - ESSENTIAL (PRIMARY) HYPERTENSION Comment: start scheduled hydralazine (10) Obesity (BMI 30.0-34.9) Current Visit: No Status: Chronic Code(s): E66.9 - OBESITY, UNSPECIFIED (11) Osteoporosis Current Visit: No Status: Chronic Code(s): M81.0 - AGE-RELATED OSTEOPOROSIS W/O CURRENT PATHOLOGICAL FRACTURE - Plan Ms Romero is a 73yo female with PMH of CHF, Idiopathic pulmonary fibrosis, Atrial Fibrillation, HTN, HLD, hx of bladder cancer admitted for chest pain and palpitations Atypical Chest Pain - pt describes as palpitations, no characteristics of pain - Initial trop neg, continue to trend. EKG with no ST segment changes - Sinus tachycardia 100 in room, systolic murmur radiating to carotids on exam. - Normal stress test Apr [address] Bañuelos consult note on 10/06/18. Had run of SVT at that admission - No evidence of PE on CT - Will monitor on tele overnight and obtain Echo as there is none documented in [employer] - Pt reports hx of multiple stress tests and heart caths, sees Dr Stearns outpt. - HEART score: 4 - HH diet and NPO at midnight in case pt needs stress test in AM. Not ordered at this time. AM dose BB held. Can restart if not ordered in AM - Mg, Phos, TSH ordered DMII - According to records well controlled. - ACHS accuchecks & CC diet HFpEF - No recent Echo on file. Echo ordered - HH diet with fluid restriction. Daily wt and strict I&Os Splenomegaly on CT - likely 2/2 congestion. Not present on CT 10/09 Recent Compression fx of L1 - Continue home meds - PT/OT - Will discharge back to rehab Transaminitis - likey 2/2 hepatic congestion HLD - Continue home meds HTN - Continue home meds Idiopathic pulmonary fibrosis Hx of bladder cancer Code Status: FULL DVT ppx: SCDs PCP: Dr Hollis FMR H&P: Upper Level - Pertinent history Savita Romero is a 73 year old F with a PMH of Idiopathic Pulmonary Fibrosis, Hx of A fib, CHF, HTN, HLD who presented to the ED with c/o chest pain and palpitations. Patient states that she is currently living at a rehab facility after a recent back injury. States that they discontinued her atenolol about 3 days ago and since that time, she has intermittent episodes of palpitations which causes her to have pain in her chest, which she describes as a fluttering sensation that causes her to become anxious. She denies any diaphoresis, nausea , radiation of her pain during these episodes. States that she does get dyspneic on exertion. In the EMS, she received aspirin and nitro which she says improved her symptoms. In the ED, she received 500 mL of NS. Initial trop was negative, CTA chest was negative for PE, and BNP was 138. ROS: 12 point ROS was received and negative unless otherwise stated in the HPI. - Pertinent findings PE: Gen- A&O X3, no acute distress HEENT: AT/NC, MMM, no post pharyngeal erythema or exudates RRR: 3/6 systolic murmur, regular rate Lungs: CTAB, no wheezes Abd: Soft, NT/ND Ext: No edema or cyanosis Neuro: no focal deficits, CN II-XII intact Psych: pt has difficulty with recent memory Laboratory Tests 12/19/18 12/19/18 12/19/18 07:00 07:00 07:00 WBC Hgb Hct Plt Count Sodium 139 Potassium 4.1 Chloride 105 Carbon Dioxide 25 BUN 14 Creatinine 0.77 Estimated GFR (MDRD) 73 Glucose 135 H Lactic Acid Calcium 9.0 Total Bilirubin 0.4 AST 58 H ALT 18 Alkaline Phosphatase 140 Creatine Kinase 29 Troponin I Less than 0.010 B-Natriuretic Peptide 138.6 H Lipase 23 12/19/18 12/19/18 07:00 07:00 WBC 5.3 Hgb 11.7 L Hct 38.4 Plt Count 133 Sodium Potassium Chloride Carbon Dioxide BUN Creatinine Estimated GFR (MDRD) Glucose Lactic Acid 0.9 Calcium Total Bilirubin AST ALT Alkaline Phosphatase Creatine Kinase Troponin I B-Natriuretic Peptide Lipase EKG: Showed sinus tachycardia, no ST changes - Plan Date/Time: 12/19/18921 I, Devendra Mahoney MD, have evaluated this patient and agree with findings/plan as outlined by undergraduate internship resident. Pertinent changes/additions are listed here. Atypical Chest Pain - pt describes pain as palpitations and anxiety - EKG showed sinus tachycardia with no ST changes, CTA neg for PE - Initial troponin negative, will trend and repeat EKG if symptoms return - Order Echo - Pt reports hx of multiple normal stress tests and heart caths, patient of Dr. Stearns, no stress or cath reports in [facility] - HEART score: 4 - Mg, Phos, TSH ordered - will resume atenolol - Obs tele HFpEF - Ordered Echo as there is not one in [facility] - BNP 138 on admission - Likely not contributing to symptoms - strict I/Os, daily weights DMII - ACHS accuchecks Splenomegaly on CT - likely 2/2 congestion. Not present on CT 10/09 - patient also has a mildly elevated ALT Transaminitis - likey 2/2 hepatic congestion HLD - home meds HTN - home meds Code Status: FULL Addendum - Attending - Attending Attestation Date/Time: 12/19/182010 I personally evaluated the patient and discussed the management with Dr. Kumar I agree with the History, Examination, Assessment and Plan documented above with any addition or exceptions noted below. 73 yo female admitted for observation with c/o palpitation and rapid heart rate after discontinuation of BB 3 days ago.Patient thoroughly evaluated in ER CTA ruled out PE, EKG no acute ischemic changes,initial troponin negative patient in sinus rhythm with rate 100s. Note recent stress test negative in Apr 2018. PMHX notable as above recommend trend troponins and restart tenormin 25 mg bid and expectant management.
--- NOTE | 2018-12-19 09:23 | CT ---
CTA CHEST WITH CONTRAST: Date: 12/19/18 Multiple axial tomograms obtained through chest following pulmonary angio protocol. Multiplanar recon struction and 3D postprocessing. INDICATION: Shortness of breath. Assess for pulmonary embolus. FINDINGS: Pulmonary arteries show adequate opacification. No evidence of pulmonary embolus identified. Lungs show chronic lung parenchymal changes. Interstitial thickening and stranding seen bilaterally. No effusion or evidence of inflammatory infiltrate. There is cardiomegaly with vascular congestion. Images through the upper abdomen show evidence of splenomegaly. The thoracic aorta shows diffuse atherosclerotic changes. There is peripheral thrombus in the descend ing thoracic aorta with irregular lumen. Mild ectasia of the descending thoracic aorta with diameter measured 3.0 cm. IMPRESSION: 1. No evidence of pulmonary embolus. 2. Chronic lung parenchymal changes. 3. Atherosclerotic changes in the thoracic aorta with ectasia of the descending thoracic aorta. 4. Splenomegaly. POS: OFF
--- NOTE | 2018-12-19 10:08 | RAD ---
PORTABLE CHEST: Date: 12/19/18 HISTORY: Chest pain. COMPARISON: 10/09/18. FINDINGS: Heart is upper normal size. Vascular and interstitial prominence again noted, similar to the prior st udy. Aortic calcification. IMPRESSION: Evidence of vascular and interstitial congestion, not significantly changed from the recent exam. POS: OFF
[2018-12-19 10:24] LABS: Troponin I 0.028 ng/mL (< 0.028)
[2018-12-19] MEDS ORDERED: ISOVUE-370 76%-LOCM 1 ML ONE (11:30)
[2018-12-19 13:35] LABS: Troponin I Less than 0.010 ng/mL (< 0.028)
[2018-12-19] MEDS ORDERED: Atenolol 25 MG TAB PO SCH (20:30)
[2018-12-19] MEDS ORDERED: HYDROcodone/Acetaminophen 5/325 mg Tablet ONE (20:32)
[2018-12-19] MEDS ORDERED: HYDROcodone/Acetaminophen 5/325 mg Tablet PO SCH (20:45)
[2018-12-19] MEDS ORDERED: Ondansetron ODT 4 MG TAB PO PRN (23:30)
[2018-12-19] MEDS ORDERED: HYDROcodone/Acetaminophen 10/325 mg Tablet PO PRN (23:30)
[2018-12-19] MEDS ORDERED: Gabapentin 300 MG CAP PO SCH (23:45)
[2018-12-19] MEDS ORDERED: Atorvastatin Calcium 10 MG TAB PO SCH (23:45)
[2018-12-19] MEDS ORDERED: Nystatin Powder 15 GM BOT TOP SCH (23:45)
[2018-12-19] MEDS ORDERED: CeleCOXIB 100 MG CAP PO SCH (23:45)
[2018-12-19] MEDS ORDERED: Losartan 25 MG TAB PO SCH (23:45)
[2018-12-20 00:15] LABS: Magnesium 2.2 mg/dL (1.6-2.6); Phosphorus 3.4 mg/dL (2.3-4.7)
--- NOTE | 2018-12-20 07:30 | PDOC.FM ---
- Subjective Subjective: Savita Romero seen at bedside this morning. She is doing well, she has no complaints this morning, states that she hasn't had any chest discomfort or palpitations during since being admitted. We continued atenolol. She denies fever, chills, chest pain, dyspnea, n/v. 1 of 2 blood cultures grew staph aureus sp., likely a contaminant as patient has no other signs of infection. - Objective MAR Reviewed: Yes Vital Signs & Weight: Vital Signs (12 hours) Temp Pulse Resp BP BP Pulse Ox 12/20/18 03:30 98.6 F 88 20 132/68 94 L 12/19/18 23:31 97.7 F 86 21 H 141/82 H 96 12/19/18 21:04 92 194/101 H Weight Weight 89.675 kg I&O: 12/19/18 12/20/18 12/21/18 06:59 06:59 06:59 Intake Total 200 Output Total 1 Balance 199 Result Diagrams: 12/19/18 07:00 12/19/18 07:00 Phys Exam - Physical Examination Constitutional: NAD HEENT: moist MMs, sclera anicteric Neck: supple, full ROM Respiratory: no wheezing, no rales, no rhonchi, clear to auscultation bilateral Cardiovascular: RRR 2/6 systolic murmur Gastrointestinal: soft, non-tender, no distention Musculoskeletal: no edema, pulses present Neurological: non-focal, normal sensation, moves all 4 limbs Psychiatric: normal affect, A&O x 3 Skin: no rash Dx/Plan (1) Acute exacerbation of chronic low back pain Code(s): M54.5 - LOW BACK PAIN; G89.29 - OTHER CHRONIC PAIN Status: Acute (2) Chronic diarrhea Code(s): K52.9 - NONINFECTIVE GASTROENTERITIS AND COLITIS, UNSPECIFIED Status : Acute (3) Compression fracture of L1 vertebra Code(s): S32.010A - WEDGE COMPRESSION FRACTURE OF FIRST LUMBAR VERTEBRA, INIT Status: Acute (4) Anxiety and depression Code(s): F41.9 - ANXIETY DISORDER, UNSPECIFIED; F32.9 - MAJOR DEPRESSIVE DISORDER, SINGLE EPISODE, UNSPECIFIED Status: Chronic (5) COPD (chronic obstructive pulmonary disease) Status: Chronic (6) Diabetes type 2, controlled Code(s): E11.9 - TYPE 2 DIABETES MELLITUS WITHOUT COMPLICATIONS Status: Chronic (7) Dyslipidemia Code(s): E78.5 - HYPERLIPIDEMIA, UNSPECIFIED Status: Chronic (8) GERD (gastroesophageal reflux disease) Code(s): K21.9 - GASTRO-ESOPHAGEAL REFLUX DISEASE WITHOUT ESOPHAGITIS Status: Chronic (9) Hypertension Code(s): I10 - ESSENTIAL (PRIMARY) HYPERTENSION Status: Chronic (10) Obesity (BMI 30.0-34.9) Code(s): E66.9 - OBESITY, UNSPECIFIED Status: Chronic (11) Osteoporosis Code(s): M81.0 - AGE-RELATED OSTEOPOROSIS W/O CURRENT PATHOLOGICAL FRACTURE Status: Chronic - Plan Plan: Atypical Chest Pain - pt describes pain as palpitations and anxiety - EKG showed sinus tachycardia with no ST changes, CTA neg for PE - Initial troponin negative, will trend and repeat EKG if symptoms return - Echo ordered - Pt reports hx of multiple normal stress tests and heart caths, patient of Dr. Stearns, no stress or cath reports in [employer] - HEART score: 4 - Mag, Phos, TSH wnl - continue home meds - no acute events overnight, no episodes of tachycardia on monitor HFpEF - Ordered Echo as there is not one in [employer] - BNP 138 on admission - Likely not contributing to symptoms - strict I/Os, daily weights DMII - ACHS accuchecks Splenomegaly on CT - likely 2/2 congestion. Not present on CT 10/09 - patient also has a mildly elevated ALT Transaminitis - likey 2/2 hepatic congestion HLD - home meds HTN - home meds Addendum - Attending - Attending Attestation Date/Time: 12/20/18 1307 I personally evaluated the patient and discussed the management with I agree with the History, Examination, Assessment and Plan documented above with any addition or exceptions noted below. Patient feeling well BP and HR better with re-starting BB ,troponins negative . Patient ok to dismiss back to rehab on BB and f/u as scheduled with Mortgage Loan Officer
[2018-12-20] MEDS ORDERED: Sodium Chloride 0.9% 10 ML ONE (08:11)
[2018-12-20] MEDS ORDERED: Oxybutynin 5 MG TAB PO SCH (09:00)
[2018-12-20] MEDS ORDERED: CeleCOXIB 100 MG CAP PO SCH (09:00)
[2018-12-20] MEDS ORDERED: Polyethylene Glycol 3350 17 GM Packet PO SCH (09:00)
[2018-12-20] MEDS ORDERED: Gabapentin 300 MG CAP PO SCH (09:00)
[2018-12-20] MEDS ORDERED: Losartan 25 MG TAB PO SCH (09:00)
[2018-12-20] MEDS ORDERED: Atenolol 25 MG TAB PO SCH (09:00)
[2018-12-20] MEDS ORDERED: Nystatin Powder 15 GM BOT TOP SCH (09:00)
[2018-12-20 11:02] VITALS: BP 125/62; TEMP 97.8
[2018-12-20] MEDS ORDERED: Atorvastatin Calcium 10 MG TAB PO SCH (21:00)
--- NOTE | 2018-12-21 02:07 | DIS ---
DATE OF ADMISSION: 12/19/2018 DATE OF DISCHARGE: 12/20/2018 RESIDENT: Devendra Mahoney MD ADMITTING ATTENDING: Bal Man MD DISCHARGE ATTENDING: Bal Man MD CONSULTS: None. PROCEDURES: 1. Chest x-ray on 12/19/2018, impression, evidence of vascular and interstitial congestion, not significantly changed from the recent exam. CTA of the chest on 12/19/2018,impression, no evidence of pulmonary embolus, chronic lung parenchymal changes. Atherosclerotic changes in the thoracic aorta with ectasia of the descending thoracic aorta and splenomegaly. 2. Blood cultures x2 from 12/19/2018, one of two cultures grew out Staph aureus, likely contaminant. PRIMARY DIAGNOSIS: Atypical chest pain. SECONDARY DIAGNOSES: 1. Type 2 diabetes mellitus. 2. Heart failure with preserved ejection fraction. 3. Splenomegaly on CT. 4. Recent compression fracture of L1. 5. Transaminitis. 6. Hyperlipidemia. 7. Hypertension. 8. Idiopathic pulmonary fibrosis. DISCHARGE MEDICATIONS: Resume home medications includin. Zoloft 100 mg p.o. daily. 2. Oxybutynin 5 mg p.o. daily. 3. Losartan 25 mg p.o. daily. 4. Gabapentin 600 mg p.o. b.i.d. 5. Celecoxib 200 mg p.o. b.i.d. 6. Atenolol 25 mg p.o. b.i.d. 7. Ibandronate 150 mg p.o. as directed. 8. MiraLAX 17 g p.o. q.a.m. 9. Pantoprazole 40 mg p.o. q.a.m. 10. Zofran 4 mg p.o. q.4 hours p.r.n. 11. Nystatin powder 1 g topical b.i.d. 12. [place] 10/325 one tablet p.o. q.4 hours p.r.n. 13. Lipitor 10 mg p.o. at bedtime. HISTORY OF PRESENT ILLNESS/HOSPITAL COURSE: Savita Romero is a 73-year-old female with a past medical history of idiopathic pulmonary fibrosis, history of atrial fibrillation, congestive heart failure, hypertension, hyperlipidemia, who presented to the ED with complaints of chest pain and palpitations. States that she has been living at a rehab facility after recent back injury. States that they discontinued her atenolol about 3 days ago and since that time, she has had intermittent episodes of palpitations which cause her to have pain in her chest, which she describes as a fluttering sensation that causes her to become anxious. She denies any diaphoresis, nausea, or radiation of her pain during these episodes. States that she does get dyspneic on exertion. In the ED, she received aspirin and nitroglycerin, which she states improved her symptoms. She also received 500 mL bolus of normal saline. Initial troponin was negative in the ED and CTA of the chest was negative for PE. She had a BNP that was drawn that was 138. Physical exam was only significant for 3/6 systolic murmur. Normal white count on admission. Creatinine was 0.77. Lactic acid was negative. The patient was admitted for atypical chest pain and tele monitoring. She had troponin negative x3. She had a heart score of 4. Mag, phos, and TSH were all normal. The patient's home atenolol was resumed. She did well overnight with no episodes of tachycardia or palpitation. No episodes of palpitations over chest discomfort. The patient stated that she has follow up with Dr. Stearns in the near future. Her hospital stay was otherwise uneventful. The patient did have one of two blood cultures grew Staph aureus. The patient showed no clinical or laboratory findings concerning for sepsis. It was thought that her blood cultures likely secondary to contaminant. CTA ruled out PE. EKG showed no acute ischemic changes. Troponins were negative x3. Of note, there was a recent stress test that was negative in April of 2018. The patient's hospital stay was otherwise uneventful. DISPOSITION: Stable. The patient should do well if she continues her home atenolol and keeping followup appointments with her primary care provider and Dr. Stearns. DISCHARGE INSTRUCTIONS: 1. Location: Back to rehab facility. 2. Diet: Heart healthy and consistent carbohydrate diet. 3. Activity: As tolerated. 4. Followup: Follow up with primary care provider and Dr. Stearns. Job ID: [id number] MTDD
== END 2018-12-20 11:15 ==
LOC: ERS 05:52 → ERHOLD 09:31 → 2NO 23:28
PROVIDERS: ADMIT Family Medicine; ATTEND Family Medicine
DX: R07.89 Other chest pain (principal); I11.0 Hypertensive heart disease with heart failure; I50.30 Unspecified diastolic (congestive) heart failure; I48.91 Unspecified atrial fibrillation; E78.5 Hyperlipidemia, unspecified; J84.112 Idiopathic pulmonary fibrosis; M19.90 Unspecified osteoarthritis, unspecified site; E11.9 Type 2 diabetes mellitus without complications; G89.29 Other chronic pain; M54.5 Low back pain; K52.9 Noninfective gastroenteritis and colitis, unspecified; S32.010A Wedge compression fracture of first lumbar vertebra, initial encounter for closed fracture; F41.9 Anxiety disorder, unspecified; F32.9 Major depressive disorder, single episode, unspecified; J44.9 Chronic obstructive pulmonary disease, unspecified; K21.9 Gastro-esophageal reflux disease without esophagitis; M81.0 Age-related osteoporosis without current pathological fracture; R74.0 Nonspecific elevation of levels of transaminase and lactic acid dehydrogenase [LDH]; E66.9 Obesity, unspecified; Z68.30 Body mass index [BMI] 30.0-30.9, adult; Z88.5 Allergy status to narcotic agent; Z79.899 Other long term (current) drug therapy; Z79.83 Long term (current) use of bisphosphonates
CPT/HCPCS: 71045; 71275; 82550; 82962 ×2; 83605; 83690; 83735; 83880; 84100; 84484 ×2; 87040; 87077; 87149 ×2; 87186; 93005; 94760 ×2; 96360; 97139; 99285; G0378; 36415; 36416; 80053; 84443; 85025; Q9966

== ENCOUNTER 2019-01-07 15:57 | Outpatient (CLI) | payer MEDICARE, OTHER ==
--- NOTE | 2019-01-07 16:09 | RAD ---
Exam: 2 views of the lumbosacral spine HISTORY: Low back pain COMPARISON: 11/17/2018 FINDINGS: 2 views of the lumbosacral spine shows wedge compression deformity of the L1 vertebral body with approximately 90% anterior height loss. The other vertebral bodies are normal in height without evidence of fracture. There is no evidence of subluxation. Small osteophytes are seen through out the lumbar spine.. The sacroiliac joints are unremarkable. Vascular calcification are seen in the aorta IMPRESSION: Interval compression deformity of L1.
== END 2019-01-07 15:58 | disposition home or self-care (01) ==
LOC: TBSIIMAG 15:57
PROVIDERS: ATTEND Neurological Surgery
DX: M48.56XA Collapsed vertebra, not elsewhere classified, lumbar region, initial encounter for fracture (principal)
CPT/HCPCS: 72100

== ENCOUNTER 2019-03-04 11:06 | Outpatient (CLI) | payer MEDICARE, OTHER ==
--- NOTE | 2019-03-04 13:25 | RAD ---
SUPINE ABDOMEN: HISTORY: Urinary calculi. COMPARISON: 02/19/2018 FINDINGS: Two small adjacent calcific densities overly the mid left kidney, although this could represent bowel content. The largest of these measures in the 5 mm range. There is a calcification in the left abdomen, peripherally, which was present on the prior exam and a ppears to lie outside the urinary tract. Tiny calcifications in the pelvis appear vascular. IMPRESSION: Bowel content obscures both renal outlines and could obscure renal calculi. There are two adjacent d ensities overlying the left kidney, which could represent bowel content or tiny renal calculi. POS: RAMAN
== END 2019-03-04 11:07 | disposition home or self-care (01) ==
LOC: RAD 11:06
PROVIDERS: ATTEND Urology
DX: N20.0 Calculus of kidney (principal)
CPT/HCPCS: 74018